=== PATIENT | male | born 1955 | race Caucasian/White ===

== ENCOUNTER 2022-05-23 09:26 | Inpatient (IN) | payer MEDICARE, BC ==
[2022-05-23 10:53] LABS: #Eosinphils 0.1 10x3/uL (0.0-0.5); #Monocytes 1.2 10x3/uL (0.0-1.1); #Neutrophils 8.2 10x3/uL (1.5-8.4); %Basophils 0.3 % (0.0-2.0); %Eosinophils 0.5 % (0.0-6.0); %Lymphocytes 8.7 % (18.0-47.0); %Monocytes 11.5 % (0.0-10.0); %Neutrophils 78.4 % (40.0-75.0); Hemoglobin 9.8 g/dL (13.5-17.5); Mean Corpuscular HGB CONC 32.9 g/dL (32.0-36.0); Mean Corpuscular Hemoglobin 28.6 pg (27.0-33.0); Mean Corpuscular Volume 86.9 fl (81.2-95.1); Mean Platelet Volume 11.1 fl (7.4-10.4); Platelet Count 212 10x3/uL (150-450); RBC Distribution Width 14.6 % (11.5-14.5); Red Blood Cell (RBC) Count 3.43 10x6/uL (4.32-5.72); White Blood Cell (WBC) Count 10.4 10x3/uL (3.5-10.5)
[2022-05-23 11:05] LABS: ALT (SGPT) 10 U/L (8-55); AST (SGOT) 13 U/L (5-34); Albumin 4.1 g/dL (3.4-4.8); Alkaline Phosphatase 73 U/L (40-110); Anion Gap 16 mmol/L (10-20); BUN (Urea Nitrogen) 14 mg/dL (8.4-25.7); Bilirubin, Total 1.1 mg/dL (0.2-1.2); Calc. Creatinine Clearance 0 mL/min (70-130); Calcium 9.5 mg/dL (7.8-10.44); Carbon Dioxide 27 mmol/L (23-31); Chloride 93 mmol/L (98-107); Estimated GFR 87; Globulin 2.9 g/dL (2.4-3.5); Glucose 129 mg/dL (80-115); Potassium 3.6 mmol/L (3.5-5.1); Sodium 132 mmol/L (136-145)
[2022-05-23 11:06] LABS: Acetaminophen Less than 10.0 mcg/mL (10.0-30.0); Alcohol Less than 10 mg/dL (Less than 10); Magnesium 1.6 mg/dL (1.6-2.6); Salicylate Less than 8.0 mg/dL (15.0-30.0)
[2022-05-23 12:38] LABS: Bilirubin Neg (Negative); Blood, Urine Negative (Negative); Clarity Clear (Clear); Glucose, Urine (Dipstick) 50 mg/dL (Negative); Ketone, Urine Negative (Negative); Leukocyte Negative (Negative); Nitrite Negative (Negative); Protein, Urine (Dipstick) Negative (Neg-Trace); Specific Gravity, Urine 1.015 (1.002-1.036); Urobilinogen Normal mg/dL (Less than 2)
[2022-05-23 12:52] LABS: Amphetamine Not Detected (NotDetected); Barbiturates Screen Not Detected (NotDetected); Benzodiazepine Screen Not Detected (NotDetected); Cocaine Metabolite Screen Not Detected (NotDetected); Methadone Not Detected (NotDetected); Methamphetamine Not Detected (NotDetected); Opiate Screen Not Detected (NotDetected); Oxycodone Screen Not Detected (NotDetected); Phencyclidine (PCP) Not Detected (NotDetected); THC/Cannabinoid Screen Not Detected (NotDetected); Tricyclic Screen Not Detected (NotDetected)
[2022-05-23] MEDS ORDERED: Sodium Chloride 0.9% 1,000 ML IV SCH (13:00)
[2022-05-23] MEDS ORDERED: Aspirin 81 mg Enteric Coated Tablet PO SCH (13:15)
[2022-05-23 13:28] VITALS: BMI 20.2
[2022-05-23 13:43] LABS: Lactic Acid 1.7 mmol/L (0.5-2.2)
[2022-05-23] MEDS: Sodium Chloride 0.9% 1,000 ML IV SCH ×2 (14:47→22:28)
[2022-05-23] MEDS: Cefepime 2 GM in Sodium Chloride 0.9% 100 ML IVPB SCH (20:10)
[2022-05-23] MEDS ORDERED: Hydrocortisone 10 mg Tablet PO SCH ×2 (21:00)
[2022-05-23] MEDS ORDERED: Vancomycin 1 GM in Premix Bag 1 BAG IVPB SCH (21:00)
[2022-05-23] MEDS: cycloSPORINE, Modified 25 MG CAP PO SCH (21:23)
[2022-05-23] MEDS: Vancomycin HCl 1 GM in Sodium Chloride 0.9% 250 ML 250 ML IVPB SCH (21:29)
[2022-05-24 04:55] LABS: Ferritin 23.44 ng/mL (22-322); Thyroid Stimulating Hormone 1.1591 uIU/mL (0.35-4.94)
[2022-05-24] MEDS ORDERED: hydrALAZINE 20 MG/ML VIAL SLOW IVP PRN (09:24)
[2022-05-24] MEDS ORDERED: Polyethylene Glycol 3350 17 GM Packet PO PRN (09:28)
[2022-05-24] MEDS ORDERED: Loratadine 10 MG TAB PO PRN (09:31)
[2022-05-24] MEDS: Vancomycin HCl 1 GM in Sodium Chloride 0.9% 250 ML 250 ML IVPB SCH (09:56)
[2022-05-24] MEDS: Cefepime 2 GM in Sodium Chloride 0.9% 100 ML IVPB SCH (09:56)
[2022-05-24] MEDS: Multivitamin W/ Minerals 1 TAB PO SCH (09:57)
[2022-05-24] MEDS: Aspirin 81 mg Enteric Coated Tablet PO SCH (09:57)
[2022-05-24] MEDS: Hydrocortisone 10 mg Tablet PO SCH (09:57)
[2022-05-24] MEDS: cycloSPORINE, Modified 25 MG CAP PO SCH ×2 (10:06→20:43)
[2022-05-24 13:18] LABS: Iron Binding Capacity, Total 313 mcg/dL (261-462); Transferrin, Serum 250 mg/dL (163-344)
[2022-05-24 13:19] LABS: Iron 23 ug/dL (65-175)
[2022-05-24] MEDS ORDERED: Tamsulosin HCl 0.4 MG CAP PO SCH (17:00)
[2022-05-24] MEDS: metFORMIN 500 MG TAB PO SCH (17:34)
[2022-05-24] MEDS: Magnesium Oxide 400 MG TAB PO SCH (20:43)
[2022-05-24] MEDS ORDERED: Mirtazapine 15 MG TAB PO SCH (21:00)
[2022-05-24] MEDS ORDERED: Hydrocortisone 10 mg Tablet PO SCH ×2 (21:00)
[2022-05-24] MEDS ORDERED: Atorvastatin Calcium 20 MG TAB PO SCH (21:00)
[2022-05-25 07:34] LABS: Anion Gap 12 mmol/L (10-20); BUN (Urea Nitrogen) 11 mg/dL (8.4-25.7); Calc. Creatinine Clearance 86 mL/min (70-130); Calcium 9.4 mg/dL (7.8-10.44); Carbon Dioxide 28 mmol/L (23-31); Chloride 104 mmol/L (98-107); Estimated GFR 97; Glucose 122 mg/dL (80-115); Potassium 3.5 mmol/L (3.5-5.1); Sodium 140 mmol/L (136-145)
[2022-05-25 08:04] VITALS: TEMP 97.6
[2022-05-25] MEDS ORDERED: Calcium Carbonate 600 MG TAB PO SCH (09:00)
[2022-05-25] MEDS ORDERED: Alogliptin 25 MG TAB PO SCH (09:00)
[2022-05-25] MEDS: Hydrocortisone 10 mg Tablet PO SCH (09:38)
[2022-05-25] MEDS: Magnesium Oxide 400 MG TAB PO SCH (09:38)
[2022-05-25] MEDS: Aspirin 81 mg Enteric Coated Tablet PO SCH (09:38)
[2022-05-25] MEDS: cycloSPORINE, Modified 25 MG CAP PO SCH (09:39)
[2022-05-25] MEDS: metFORMIN 500 MG TAB PO SCH (09:39)
[2022-05-25] MEDS: Multivitamin W/ Minerals 1 TAB PO SCH (09:39)
[2022-05-25 11:20] VITALS: BP 140/99
== END 2022-05-25 11:07 | disposition home or self-care (01) | DRG 641 ==
LOC: CSHERS 09:47 → CSHTELE 13:09
PROVIDERS: ADMIT Internal Medicine; ATTEND Family Medicine
DX: E86.0 Dehydration (principal); T86.19 Other complication of kidney transplant; Z94.1 Heart transplant status; N17.9 Acute kidney failure, unspecified; Z94.0 Kidney transplant status; E87.1 Hypo-osmolality and hyponatremia; E87.2 Acidosis; E11.9 Type 2 diabetes mellitus without complications; I10 Essential (primary) hypertension; I95.1 Orthostatic hypotension; D64.9 Anemia, unspecified; E78.5 Hyperlipidemia, unspecified; N40.0 Benign prostatic hyperplasia without lower urinary tract symptoms; F32.A Depression, unspecified; Y83.8 Other surgical procedures as the cause of abnormal reaction of the patient, or of later complication, without mention of misadventure at the time of the procedure; Z20.822 Contact with and (suspected) exposure to COVID-19
CPT/HCPCS: 36415; 36416; 70450; 71045; 80048; 80053; 80158; 80306; 80307; 81003; 82565; 82607; 82728; 83540; 83550; 83605; 83735; 84238; 84443; 84466; 85025; 87040; 87086; 93005; 96365; J0692; J3370; J3490; J7050; J7515; U0003; U0005

== ENCOUNTER 2022-07-12 19:25 | Inpatient (IN) | payer MEDICARE, BC ==
[2022-07-12 19:56] LABS: Bilirubin Neg (Negative); Blood, Urine 250 (Negative); Clarity Cloudy (Clear); Glucose, Urine (Dipstick) 50 mg/dL (Negative); Ketone, Urine 50 mg/dL (Negative); Leukocyte 500 (Negative); Nitrite Positive (Negative); Protein, Urine (Dipstick) 100 mg/dl (Neg-Trace); Urobilinogen Normal mg/dL (Less than 2)
[2022-07-12 20:02] LABS: Bacteria/HPF 1+ HPF (None Seen); RBC/HPF Greater than 50 HPF (0-3); Squamous Epithelial 0-3 HPF (0-3); WBC/HPF Greater Than 50 HPF (0-3)
[2022-07-12] MEDS ORDERED: Cefepime 2 GM VIAL ONE (20:09)
[2022-07-12] MEDS ORDERED: Ibuprofen 200 MG TAB ONE (20:13)
[2022-07-12 20:21] LABS: Hemoglobin 7.2 g/dL (13.5-17.5); MDiff Complete? YES; Mean Corpuscular Hemoglobin 28.5 pg (27.0-33.0); Mean Corpuscular Volume 86.2 fl (81.2-95.1); Mean Platelet Volume 10.9 fl (7.4-10.4); Platelet Count 171 10x3/uL (150-450); Platelet Morphology Comment Appears Adequate; RBC Distribution Width 17.6 % (11.5-14.5); Red Blood Cell (RBC) Count 2.53 10x6/uL (4.32-5.72); White Blood Cell (WBC) Count 17.2 10x3/uL (3.5-10.5)
[2022-07-12 20:26] LABS: SARS-CoV-2 NAA Rapid Test Not Detected (NotDetected)
[2022-07-12 20:33] LABS: ALT (SGPT) 28 U/L (8-55); AST (SGOT) 44 U/L (5-34); Albumin 3.1 g/dL (3.4-4.8); Alkaline Phosphatase 101 U/L (40-110); Anion Gap 13 mmol/L (10-20); BUN (Urea Nitrogen) 18 mg/dL (8.4-25.7); Bilirubin, Total 1.4 mg/dL (0.2-1.2); CK (CPK) 412 U/L (30-200); Calc. Creatinine Clearance 0 mL/min (70-130); Calcium 8.1 mg/dL (7.8-10.44); Carbon Dioxide 19 mmol/L (23-31); Chloride 106 mmol/L (98-107); Estimated GFR 97; Globulin 3.4 g/dL (2.4-3.5); Glucose 159 mg/dL (80-115); Lipase 61 U/L (8-78); Potassium 3.1 mmol/L (3.5-5.1); Protein, Total 6.5 g/dL (5.8-8.1); Sodium 135 mmol/L (136-145)
[2022-07-12 21:24] LABS: Band 18 % (5-11); Lymphocytes 6 % (21-51); Monocytes 8 % (0-10); Neutrophil 67 % (42-75)
[2022-07-12] MEDS ORDERED: Communication Order-Pharmacy FS PRN (21:40)
[2022-07-12] MEDS ORDERED: Acetaminophen 650 MG Suppository PR PRN (21:45)
[2022-07-12] MEDS ORDERED: Ondansetron PF 4 MG/2 ML Vial IVP PRN (21:45)
[2022-07-12 22:25] LABS: Magnesium 1.5 mg/dL (1.6-2.6)
[2022-07-12] MEDS ORDERED: VANCOMYCIN 1.25 GM/250 ML BAG 1.25 GM in Premix Bag 1 BAG IVPB SCH (22:45)
[2022-07-12] MEDS ORDERED: NOREPINEPHRINE 8 MG/250 ML-D5W 250 ML IVPB SCH (23:00)
[2022-07-12] MEDS ORDERED: Potassium Chloride 20 MEQ/100 ML PREMIX BAG ONE (23:20)
[2022-07-12] MEDS ORDERED: Hydrocortisone Sod Succ/PF 100 mg/2 ml Vial ONE (23:20)
[2022-07-12] MEDS: Lactated Ringer's 1,000 ML IV SCH (23:37)
[2022-07-12] MEDS: Hydrocortisone Sod Succ/PF 100 mg/2 ml Vial IVP SCH (23:37)
[2022-07-12] MEDS: Potassium Chloride 20 MEQ in Premix Bag 1 BAG IVPB SCH (23:44)
[2022-07-13] MEDS ORDERED: Dextrose 5% in Water 1,000 ML IV PRN (00:06)
[2022-07-13] MEDS ORDERED: Dextrose 50% Abboject 50 ML SYRINGE SLOW IVP PRN (00:06)
[2022-07-13] MEDS ORDERED: HumaLOG 300 UNITS/3 ML VIAL SC PRN (00:06)
[2022-07-13 00:12] LABS: Troponin I 0.029 ng/mL (< 0.028)
[2022-07-13] MEDS ORDERED: Magnesium 2 GM/50 ML BAG (IN WATER) ONE (00:59)
[2022-07-13] MEDS ORDERED: Magnesium 2 GM/50 ML(in water) 2 GM in Premix Bag 1 BAG IVPB SCH (01:00)
[2022-07-13] MEDS ORDERED: Potassium Chloride 20 MEQ/100 ML PREMIX BAG ONE (01:56)
[2022-07-13] MEDS: Potassium Chloride 20 MEQ in Premix Bag 1 BAG IVPB SCH (01:56)
[2022-07-13 04:08] LABS: Hemoglobin 7.9 g/dL (13.5-17.5); Mean Corpuscular HGB CONC 32.6 g/dL (32.0-36.0); Mean Corpuscular Hemoglobin 28.9 pg (27.0-33.0); Mean Corpuscular Volume 88.6 fl (81.2-95.1); Mean Platelet Volume 11.7 fl (7.4-10.4); RBC Distribution Width 18.1 % (11.5-14.5); Red Blood Cell (RBC) Count 2.73 10x6/uL (4.32-5.72); White Blood Cell (WBC) Count 18.4 10x3/uL (3.5-10.5)
[2022-07-13 04:09] LABS: Platelet Count 143 10x3/uL (150-450)
[2022-07-13 04:10] LABS: Anion Gap 16 mmol/L (10-20); BUN (Urea Nitrogen) 14 mg/dL (8.4-25.7); Calc. Creatinine Clearance 0 mL/min (70-130); Calcium 8.5 mg/dL (7.8-10.44); Carbon Dioxide 15 mmol/L (23-31); Chloride 110 mmol/L (98-107); Estimated GFR 99; Glucose 145 mg/dL (80-115); Potassium 3.7 mmol/L (3.5-5.1); Sodium 137 mmol/L (136-145)
[2022-07-13 04:20] LABS: Troponin I 0.028 ng/mL (< 0.028)
[2022-07-13] MEDS ORDERED: Hydrocortisone Sod Succ/PF 100 mg/2 ml Vial ONE ×2 (04:55→10:55)
[2022-07-13] MEDS: Hydrocortisone Sod Succ/PF 100 mg/2 ml Vial IVP SCH ×2 (05:00→11:08)
[2022-07-13 05:13] LABS: MDiff Complete? YES
[2022-07-13] MEDS: Lactated Ringer's 1,000 ML IV SCH ×2 (05:13→13:17)
[2022-07-13 05:16] LABS: Band 30 % (5-11); Lymphocytes 2 % (21-51); Monocytes 6 % (0-10); Neutrophil 62 % (42-75)
[2022-07-13 05:18] LABS: Anisocytosis MODERATE=16-30 cells (100X) (0-5/hpf); Macrocytosis SLIGHT = 6-15 cells (100X) (0-5/hpf); Microcytosis SLIGHT = 6-15 cells (100X) (0-5/hpf); Platelet Morphology Comment Appears Decreased
[2022-07-13 06:23] LABS: Magnesium 2.1 mg/dL (1.6-2.6)
[2022-07-13] MEDS ORDERED: Enoxaparin Sodium 40 MG/0.4 ML SYRINGE ONE (07:40)
[2022-07-13] MEDS ORDERED: Pantoprazole 40 MG VIAL ONE (07:40)
[2022-07-13] MEDS ORDERED: Cefepime 2 GM VIAL ONE (07:40)
[2022-07-13] MEDS: Pantoprazole 40 MG VIAL IVP SCH (08:55)
[2022-07-13] MEDS: Cefepime 2 GM in Sodium Chloride 0.9% 100 ML IVPB SCH ×2 (08:55→20:47)
[2022-07-13 09:58] VITALS: BMI 20.4
[2022-07-13] MEDS: Enoxaparin Sodium 40 MG/0.4 ML SYRINGE SC SCH (11:07)
[2022-07-13] MEDS: Vancomycin HCl 750 MG in Sodium Chloride 0.9% 250 ML 250 ML IVPB SCH (11:08)
[2022-07-13] MEDS: Hydrocortisone 10 mg Tablet PO SCH (20:48)
[2022-07-14] MEDS: Vancomycin HCl 750 MG in Sodium Chloride 0.9% 250 ML 250 ML IVPB SCH (00:56)
[2022-07-14] MEDS: Cefepime 2 GM in Sodium Chloride 0.9% 100 ML IVPB SCH ×3 (02:31→13:27)
[2022-07-14 05:50] LABS: #Basophils 0.1 10x3/uL (0.0-0.2); #Monocytes 0.9 10x3/uL (0.0-1.1); #Neutrophils 16.2 10x3/uL (1.5-8.4); %Basophils 0.3 % (0.0-2.0); %Eosinophils 0.2 % (0.0-6.0); %Lymphocytes 4.7 % (18.0-47.0); %Monocytes 4.7 % (0.0-10.0); %Neutrophils 89.3 % (40.0-75.0); Hemoglobin 7.8 g/dL (13.5-17.5); Mean Corpuscular HGB CONC 32.8 g/dL (32.0-36.0); Mean Corpuscular Hemoglobin 28.5 pg (27.0-33.0); Mean Corpuscular Volume 86.9 fl (81.2-95.1); Mean Platelet Volume 11.5 fl (7.4-10.4); Platelet Count 156 10x3/uL (150-450); RBC Distribution Width 18.1 % (11.5-14.5); Red Blood Cell (RBC) Count 2.74 10x6/uL (4.32-5.72); White Blood Cell (WBC) Count 18.1 10x3/uL (3.5-10.5)
[2022-07-14 06:10] LABS: ALT (SGPT) 32 U/L (8-55); AST (SGOT) 91 U/L (5-34); Albumin 2.9 g/dL (3.4-4.8); Alkaline Phosphatase 103 U/L (40-110); Anion Gap 13 mmol/L (10-20); BUN (Urea Nitrogen) 14 mg/dL (8.4-25.7); Bilirubin, Total 1.4 mg/dL (0.2-1.2); Calc. Creatinine Clearance 89 mL/min (70-130); Calcium 8.7 mg/dL (7.8-10.44); Carbon Dioxide 20 mmol/L (23-31); Chloride 106 mmol/L (98-107); Estimated GFR 100; Globulin 3.6 g/dL (2.4-3.5); Glucose 105 mg/dL (80-115); Potassium 3.3 mmol/L (3.5-5.1); Protein, Total 6.5 g/dL (5.8-8.1); Sodium 136 mmol/L (136-145)
[2022-07-14] MEDS: Lactated Ringer's 1,000 ML IV SCH ×2 (09:55→20:15)
[2022-07-14] MEDS: Hydrocortisone 10 mg Tablet PO SCH ×2 (09:56→20:48)
[2022-07-14] MEDS: Pantoprazole 40 MG VIAL IVP SCH (09:56)
[2022-07-14] MEDS: Enoxaparin Sodium 40 MG/0.4 ML SYRINGE SC SCH (09:56)
[2022-07-14 10:38] LABS: Vancomycin, Trough 12.5 ug/mL
[2022-07-14] MEDS ORDERED: Vancomycin HCl 1 GM in Sodium Chloride 0.9% 250 ML 250 ML IVPB SCH (11:00)
[2022-07-14] MEDS: Vancomycin HCl 1 GM in Sodium Chloride 0.9% 250 ML 250 ML IVPB SCH (15:25)
[2022-07-15] MEDS: Cefepime 2 GM in Sodium Chloride 0.9% 100 ML IVPB SCH ×2 (01:12→14:25)
[2022-07-15] MEDS: Lactated Ringer's 1,000 ML IV SCH ×3 (02:26→20:15)
[2022-07-15] MEDS: Vancomycin HCl 1 GM in Sodium Chloride 0.9% 250 ML 250 ML IVPB SCH (03:29)
[2022-07-15] MEDS ORDERED: Acetaminophen 325 MG TAB PO PRN (03:50)
[2022-07-15 05:25] LABS: #Basophils 0.1 10x3/uL (0.0-0.2); #Eosinphils 0.1 10x3/uL (0.0-0.5); #Monocytes 0.6 10x3/uL (0.0-1.1); #Neutrophils 7.9 10x3/uL (1.5-8.4); %Basophils 0.5 % (0.0-2.0); %Eosinophils 0.9 % (0.0-6.0); %Lymphocytes 7.3 % (18.0-47.0); %Monocytes 6.6 % (0.0-10.0); %Neutrophils 84.2 % (40.0-75.0); Hemoglobin 7.9 g/dL (13.5-17.5); Mean Corpuscular HGB CONC 33.6 g/dL (32.0-36.0); Mean Corpuscular Hemoglobin 28.4 pg (27.0-33.0); Mean Corpuscular Volume 84.5 fl (81.2-95.1); Mean Platelet Volume 10.6 fl (7.4-10.4); Platelet Count 135 10x3/uL (150-450); RBC Distribution Width 17.7 % (11.5-14.5); Red Blood Cell (RBC) Count 2.78 10x6/uL (4.32-5.72); White Blood Cell (WBC) Count 9.9 10x3/uL (3.5-10.5)
[2022-07-15 05:38] LABS: Anion Gap 12 mmol/L (10-20); BUN (Urea Nitrogen) 10 mg/dL (8.4-25.7); Calc. Creatinine Clearance 93 mL/min (70-130); Carbon Dioxide 21 mmol/L (23-31); Chloride 108 mmol/L (98-107); Sodium 138 mmol/L (136-145)
[2022-07-15 05:39] LABS: Calcium 8.5 mg/dL (7.8-10.44); Estimated GFR 101; Glucose 125 mg/dL (80-115)
[2022-07-15 05:42] LABS: Potassium 2.7 mmol/L (3.5-5.1)
[2022-07-15] MEDS ORDERED: Potassium Chloride 20 MEQ TAB PO SCH ×2 (06:00→09:00)
[2022-07-15] MEDS: Enoxaparin Sodium 40 MG/0.4 ML SYRINGE SC SCH (08:59)
[2022-07-15] MEDS: Hydrocortisone 10 mg Tablet PO SCH ×2 (08:59→21:15)
[2022-07-16] MEDS: Cefepime 2 GM in Sodium Chloride 0.9% 100 ML IVPB SCH ×2 (02:05→14:46)
[2022-07-16 08:19] LABS: Anion Gap 11 mmol/L (10-20); BUN (Urea Nitrogen) 7 mg/dL (8.4-25.7); Calc. Creatinine Clearance 101 mL/min (70-130); Calcium 9.1 mg/dL (7.8-10.44); Carbon Dioxide 24 mmol/L (23-31); Chloride 108 mmol/L (98-107); Estimated GFR 104; Glucose 116 mg/dL (80-115); Potassium 3.1 mmol/L (3.5-5.1); Sodium 140 mmol/L (136-145)
[2022-07-16 08:21] LABS: #Basophils 0.1 10x3/uL (0.0-0.2); #Eosinphils 0.2 10x3/uL (0.0-0.5); #Monocytes 0.9 10x3/uL (0.0-1.1); %Basophils 1.1 % (0.0-2.0); %Eosinophils 2.8 % (0.0-6.0); %Lymphocytes 11.3 % (18.0-47.0); %Monocytes 12.8 % (0.0-10.0); %Neutrophils 71.4 % (40.0-75.0); Hemoglobin 8.3 g/dL (13.5-17.5); Mean Corpuscular HGB CONC 33.1 g/dL (32.0-36.0); Mean Corpuscular Volume 84.8 fl (81.2-95.1); Mean Platelet Volume 10.1 fl (7.4-10.4); Platelet Count 126 10x3/uL (150-450); RBC Distribution Width 17.8 % (11.5-14.5); Red Blood Cell (RBC) Count 2.96 10x6/uL (4.32-5.72)
[2022-07-16] MEDS: Lactated Ringer's 1,000 ML IV SCH ×2 (10:10→17:52)
[2022-07-16] MEDS: Hydrocortisone 10 mg Tablet PO SCH (10:10)
[2022-07-16] MEDS: Enoxaparin Sodium 40 MG/0.4 ML SYRINGE SC SCH (10:10)
[2022-07-16 16:23] VITALS: BP 118/80; TEMP 99.9
== END 2022-07-16 18:25 | DRG 698 ==
LOC: CSHERS 19:25 → CSHERHOLD 22:44 → CSHTELE 07-13 18:43
PROVIDERS: ADMIT Family Medicine; ATTEND Family Medicine
DX: T83.511A Infection and inflammatory reaction due to indwelling urethral catheter, initial encounter (principal); A41.51 Sepsis due to Escherichia coli [E. coli]; R65.20 Severe sepsis without septic shock; A41.52 Sepsis due to Pseudomonas; D84.9 Immunodeficiency, unspecified; E87.20 Acidosis, unspecified; Z94.1 Heart transplant status; Z94.0 Kidney transplant status; N39.0 Urinary tract infection, site not specified; E87.6 Hypokalemia; E11.9 Type 2 diabetes mellitus without complications; I95.1 Orthostatic hypotension; N40.1 Benign prostatic hyperplasia with lower urinary tract symptoms; R33.8 Other retention of urine; D63.8 Anemia in other chronic diseases classified elsewhere; K21.9 Gastro-esophageal reflux disease without esophagitis; G20 Parkinson's disease; I10 Essential (primary) hypertension; N40.0 Benign prostatic hyperplasia without lower urinary tract symptoms; F01.50 Vascular dementia, unspecified severity, without behavioral disturbance, psychotic disturbance, mood disturbance, and anxiety; Z20.822 Contact with and (suspected) exposure to COVID-19; Z79.82 Long term (current) use of aspirin; Z79.899 Other long term (current) drug therapy; Y83.8 Other surgical procedures as the cause of abnormal reaction of the patient, or of later complication, without mention of misadventure at the time of the procedure
CPT/HCPCS: 36415; 36416; 70450; 71045; 80048; 80053; 80061; 80195; 80202; 81003; 81015; 82140; 82306; 82550; 83036; 83605; 83690; 83735; 84100; 84443; 84484; 85025; 87040; 87077; 87086; 87149; 87186; 93005; 93010; 94760; 96361; 96365; C9113; J0692; J1650; J1720; J3370; J3475; J3480; J3490; J7050; J7120; U0002

== ENCOUNTER 2022-08-09 01:38 | Inpatient (IN) | payer MEDICARE, BC ==
[2022-08-09 01:49] LABS: Bilirubin Neg (Negative); Blood, Urine 25 (Negative); Clarity Clear (Clear); Glucose, Urine (Dipstick) 100 mg/dL (Negative); Ketone, Urine Negative (Negative); Leukocyte 100 (Negative); Nitrite Negative (Negative); Protein, Urine (Dipstick) 30 mg/dl (Neg-Trace); Urobilinogen Normal mg/dL (Less than 2)
[2022-08-09 01:52] LABS: #Basophils 0.1 10x3/uL (0.0-0.2); #Eosinphils 0.1 10x3/uL (0.0-0.5); #Monocytes 0.6 10x3/uL (0.0-1.1); #Neutrophils 5.6 10x3/uL (1.5-8.4); %Basophils 0.7 % (0.0-2.0); %Lymphocytes 12.7 % (18.0-47.0); %Monocytes 8.6 % (0.0-10.0); %Neutrophils 76.5 % (40.0-75.0); Mean Corpuscular HGB CONC 32.4 g/dL (32.0-36.0); Mean Corpuscular Hemoglobin 28.8 pg (27.0-33.0); Mean Corpuscular Volume 89.1 fl (81.2-95.1); Mean Platelet Volume 12.3 fl (7.4-10.4); Platelet Count 140 10x3/uL (150-450); Red Blood Cell (RBC) Count 3.12 10x6/uL (4.32-5.72); White Blood Cell (WBC) Count 7.3 10x3/uL (3.5-10.5)
[2022-08-09 01:59] LABS: ALT (SGPT) 15 U/L (8-55); AST (SGOT) 15 U/L (5-34); Albumin 3.6 g/dL (3.4-4.8); Alkaline Phosphatase 83 U/L (40-110); Anion Gap 16 mmol/L (10-20); BUN (Urea Nitrogen) 12 mg/dL (8.4-25.7); Bilirubin, Total 1.1 mg/dL (0.2-1.2); Calc. Creatinine Clearance 0 mL/min (70-130); Calcium 8.7 mg/dL (7.8-10.44); Carbon Dioxide 20 mmol/L (23-31); Chloride 104 mmol/L (98-107); Estimated GFR 101; Globulin 3.2 g/dL (2.4-3.5); Glucose 117 mg/dL (80-115); Potassium 3.2 mmol/L (3.5-5.1); Protein, Total 6.8 g/dL (5.8-8.1); Sodium 137 mmol/L (136-145)
[2022-08-09] MEDS ORDERED: cefTRIAXone\\ROCEPHIN 2 GM VIAL ONE (02:26)
[2022-08-09 02:28] LABS: Bacteria/HPF Rare-Few HPF (None Seen); RBC/HPF 0-3 HPF (0-3); Squamous Epithelial None Seen HPF (0-3); Yeast-Budding Rare HPF (None Seen)
[2022-08-09] MEDS ORDERED: Ondansetron PF 4 MG/2 ML Vial IVP PRN (03:47)
[2022-08-09] MEDS ORDERED: Calcium Carbonate 500 MG ChewTAB PO PRN (03:47)
[2022-08-09] MEDS ORDERED: Senokot S 8.6-50 MG TAB PO PRN (03:47)
[2022-08-09] MEDS ORDERED: Dextrose 50% Abboject 50 ML SYRINGE SLOW IVP PRN (03:47)
[2022-08-09] MEDS ORDERED: Guaifenesin DM 100-10/5 ML UDCUP PO PRN (03:47)
[2022-08-09] MEDS ORDERED: Dextrose 5% in Water 1,000 ML IV PRN (03:47)
[2022-08-09] MEDS ORDERED: Lactated Ringer's 1,000 ML IV SCH (04:00)
[2022-08-09 05:19] VITALS: BMI 18.3
[2022-08-09 05:37] LABS: Lactic Acid 2.7 mmol/L (0.5-2.2)
[2022-08-09 06:16] LABS: SARS-CoV-2 NAA Rapid Test Not Detected (NotDetected)
[2022-08-09] MEDS: Lactated Ringer's 500 ML IV SCH ×2 (06:30→12:04)
[2022-08-09] MEDS ORDERED: Potassium Chloride 20 MEQ TAB PO SCH ×2 (06:45→09:00)
[2022-08-09] MEDS ORDERED: Fluconazole In NaCl,Iso-Osm 400 MG in Premix Bag 1 BAG IVPB SCH (08:00)
[2022-08-09] MEDS ORDERED: Hydrocortisone 10 mg Tablet PO SCH ×2 (09:00→21:00)
[2022-08-09] MEDS: Loratadine 10 MG TAB PO PRN (09:30)
[2022-08-09] MEDS: Carbidopa/Levodopa 25-100 mg Tablet PO SCH ×3 (09:30→21:31)
[2022-08-09] MEDS: Aspirin 81 mg Enteric Coated Tablet PO SCH (09:32)
[2022-08-09] MEDS: Cefepime 1 GM in Sodium Chloride 0.9% 100 ML IVPB SCH ×2 (09:32→21:30)
[2022-08-09] MEDS: Alogliptin 6.25 MG TAB PO SCH (09:32)
[2022-08-09] MEDS: Calcium Carbonate 600 MG TAB PO SCH (09:32)
[2022-08-09] MEDS: Multivit, Therapeutic 1 TAB PO SCH (09:33)
[2022-08-09] MEDS ORDERED: Vancomycin HCl 1 GM in Sodium Chloride 0.9% 250 ML 250 ML IVPB SCH (11:00)
[2022-08-09] MEDS ORDERED: Lactated Ringer's 500 ML IV SCH (11:00)
[2022-08-09] MEDS: Acetaminophen 325 MG TAB PO PRN ×2 (12:03→21:30)
[2022-08-09] MEDS: Lactated Ringer's 1,000 ML IV SCH (12:04)
[2022-08-09] MEDS: metroNIDAZOLE 500 MG in Premix Bag 1 BAG IVPB SCH ×2 (14:02→22:27)
[2022-08-09] MEDS: Tamsulosin HCl 0.4 MG CAP PO SCH (15:11)
[2022-08-09] MEDS ORDERED: metroNIDAZOLE 500 MG/100 ML BAG ONE (20:46)
[2022-08-09] MEDS: Enoxaparin Sodium 40 MG/0.4 ML SYRINGE SC SCH (21:30)
[2022-08-09] MEDS: Hydrocortisone 10 mg Tablet PO SCH (21:31)
[2022-08-09] MEDS: Atorvastatin Calcium 40 MG TAB PO SCH (21:31)
[2022-08-10] MEDS: Vancomycin HCl 750 MG in Sodium Chloride 0.9% 250 ML 250 ML IVPB SCH ×2 (01:30→13:11)
[2022-08-10] MEDS: Lactated Ringer's 1,000 ML IV SCH ×3 (04:26→17:08)
[2022-08-10] MEDS: metroNIDAZOLE 500 MG in Premix Bag 1 BAG IVPB SCH ×3 (05:44→22:33)
[2022-08-10 06:21] LABS: #Monocytes 0.5 10x3/uL (0.0-1.1); #Neutrophils 5.9 10x3/uL (1.5-8.4); %Basophils 0.4 % (0.0-2.0); %Eosinophils 0.3 % (0.0-6.0); %Lymphocytes 11.2 % (18.0-47.0); %Monocytes 6.2 % (0.0-10.0); %Neutrophils 81.6 % (40.0-75.0); Mean Corpuscular Hemoglobin 28.6 pg (27.0-33.0); Mean Corpuscular Volume 86.7 fl (81.2-95.1); Mean Platelet Volume 11.4 fl (7.4-10.4); Platelet Count 115 10x3/uL (150-450); RBC Distribution Width 17.1 % (11.5-14.5); Red Blood Cell (RBC) Count 3.15 10x6/uL (4.32-5.72); White Blood Cell (WBC) Count 7.2 10x3/uL (3.5-10.5)
[2022-08-10 07:32] LABS: Anion Gap 13 mmol/L (10-20); BUN (Urea Nitrogen) 10 mg/dL (8.4-25.7); Calc. Creatinine Clearance 93 mL/min (70-130); Calcium 8.8 mg/dL (7.8-10.44); Carbon Dioxide 19 mmol/L (23-31); Chloride 110 mmol/L (98-107); Estimated GFR 102; Glucose 127 mg/dL (80-115); Potassium 3.3 mmol/L (3.5-5.1); Sodium 139 mmol/L (136-145)
[2022-08-10] MEDS ORDERED: Potassium Chloride 20 MEQ TAB PO SCH (09:00)
[2022-08-10] MEDS ORDERED: Fluconazole In NaCl,Iso-Osm 400 MG in Premix Bag 1 BAG IVPB SCH (09:00)
[2022-08-10] MEDS ORDERED: PATIENT'S HOME MEDICATION PO SCH (09:00)
[2022-08-10] MEDS: Aspirin 81 mg Enteric Coated Tablet PO SCH (09:24)
[2022-08-10] MEDS: Loratadine 10 MG TAB PO PRN (09:24)
[2022-08-10] MEDS: Multivit, Therapeutic 1 TAB PO SCH (09:24)
[2022-08-10] MEDS: Cefepime 1 GM in Sodium Chloride 0.9% 100 ML IVPB SCH ×2 (09:24→21:07)
[2022-08-10] MEDS: Alogliptin 6.25 MG TAB PO SCH (09:24)
[2022-08-10] MEDS: SIROLIMUS 1 MG PO SCH (09:29)
[2022-08-10] MEDS: SIROLIMUS 0.5 MG FS SCH (09:29)
[2022-08-10] MEDS: Hydrocortisone 10 mg Tablet PO SCH ×2 (09:32→21:07)
[2022-08-10] MEDS: Carbidopa/Levodopa 25-100 mg Tablet PO SCH ×3 (10:11→21:06)
[2022-08-10] MEDS: Calcium Carbonate 600 MG TAB PO SCH (10:11)
[2022-08-10] MEDS: Tamsulosin HCl 0.4 MG CAP PO SCH (17:08)
[2022-08-10] MEDS: Atorvastatin Calcium 40 MG TAB PO SCH (21:06)
[2022-08-10] MEDS: Enoxaparin Sodium 40 MG/0.4 ML SYRINGE SC SCH (21:06)
[2022-08-11 00:35] LABS: Vancomycin, Trough 12.3 ug/mL
[2022-08-11] MEDS: Vancomycin HCl 750 MG in Sodium Chloride 0.9% 250 ML 250 ML IVPB SCH ×2 (01:51→14:14)
[2022-08-11] MEDS: Lactated Ringer's 1,000 ML IV SCH ×2 (03:05→15:30)
[2022-08-11 06:33] LABS: Hemoglobin 8.6 g/dL (13.5-17.5); Mean Corpuscular HGB CONC 32.6 g/dL (32.0-36.0); Mean Corpuscular Hemoglobin 28.3 pg (27.0-33.0); Mean Corpuscular Volume 86.8 fl (81.2-95.1); Mean Platelet Volume 11.5 fl (7.4-10.4); Platelet Count 110 10x3/uL (150-450); RBC Distribution Width 16.8 % (11.5-14.5); Red Blood Cell (RBC) Count 3.04 10x6/uL (4.32-5.72); White Blood Cell (WBC) Count 5.4 10x3/uL (3.5-10.5)
[2022-08-11 06:34] LABS: #Eosinphils 0.1 10x3/uL (0.0-0.5); #Monocytes 0.5 10x3/uL (0.0-1.1); #Neutrophils 3.9 10x3/uL (1.5-8.4); %Basophils 0.6 % (0.0-2.0); %Eosinophils 2.5 % (0.0-6.0); %Lymphocytes 14.2 % (18.0-47.0); %Monocytes 8.7 % (0.0-10.0); %Neutrophils 73.6 % (40.0-75.0)
[2022-08-11] MEDS: metroNIDAZOLE 500 MG in Premix Bag 1 BAG IVPB SCH ×3 (06:42→21:42)
[2022-08-11 06:49] LABS: Anion Gap 12 mmol/L (10-20); BUN (Urea Nitrogen) 8 mg/dL (8.4-25.7); Calc. Creatinine Clearance 100 mL/min (70-130); Carbon Dioxide 23 mmol/L (23-31); Chloride 109 mmol/L (98-107); Estimated GFR 105; Glucose 114 mg/dL (80-115); Potassium 3.3 mmol/L (3.5-5.1); Sodium 141 mmol/L (136-145)
[2022-08-11] MEDS: Cefepime 1 GM in Sodium Chloride 0.9% 100 ML IVPB SCH ×2 (10:28→20:46)
[2022-08-11] MEDS: SIROLIMUS 1 MG PO SCH (10:28)
[2022-08-11] MEDS: SIROLIMUS 0.5 MG FS SCH (10:29)
[2022-08-11] MEDS: Calcium Carbonate 600 MG TAB PO SCH (10:30)
[2022-08-11] MEDS: Carbidopa/Levodopa 25-100 mg Tablet PO SCH ×3 (10:30→20:45)
[2022-08-11] MEDS: Alogliptin 6.25 MG TAB PO SCH (10:30)
[2022-08-11] MEDS ORDERED: Potassium Bicarbonate/Cit Ac 20 MEQ TAB PO SCH (10:30)
[2022-08-11] MEDS: Aspirin 81 mg Enteric Coated Tablet PO SCH (10:30)
[2022-08-11] MEDS: Multivit, Therapeutic 1 TAB PO SCH (10:30)
[2022-08-11] MEDS: Hydrocortisone 10 mg Tablet PO SCH ×2 (10:38→20:46)
[2022-08-11] MEDS: Tamsulosin HCl 0.4 MG CAP PO SCH (17:58)
[2022-08-11] MEDS: Atorvastatin Calcium 40 MG TAB PO SCH (20:44)
[2022-08-11] MEDS: Enoxaparin Sodium 40 MG/0.4 ML SYRINGE SC SCH (20:46)
[2022-08-12] MEDS: Vancomycin HCl 750 MG in Sodium Chloride 0.9% 250 ML 250 ML IVPB SCH ×2 (00:48→12:42)
[2022-08-12] MEDS: Lactated Ringer's 1,000 ML IV SCH ×2 (00:48→17:03)
[2022-08-12 06:17] LABS: Anion Gap 14 mmol/L (10-20); BUN (Urea Nitrogen) 10 mg/dL (8.4-25.7); Calc. Creatinine Clearance 100 mL/min (70-130); Calcium 8.9 mg/dL (7.8-10.44); Carbon Dioxide 24 mmol/L (23-31); Chloride 105 mmol/L (98-107); Estimated GFR 105; Glucose 158 mg/dL (80-115); Potassium 3.2 mmol/L (3.5-5.1); Sodium 140 mmol/L (136-145)
[2022-08-12] MEDS: metroNIDAZOLE 500 MG in Premix Bag 1 BAG IVPB SCH (06:19)
[2022-08-12 06:38] LABS: #Monocytes 0.3 10x3/uL (0.0-1.1); #Neutrophils 3.5 10x3/uL (1.5-8.4); %Basophils 0.6 % (0.0-2.0); %Eosinophils 0.6 % (0.0-6.0); %Lymphocytes 16.8 % (18.0-47.0); %Monocytes 7.1 % (0.0-10.0); %Neutrophils 74.7 % (40.0-75.0); Mean Corpuscular HGB CONC 32.3 g/dL (32.0-36.0); Mean Corpuscular Volume 86.6 fl (81.2-95.1); Mean Platelet Volume 11.1 fl (7.4-10.4); Platelet Count 124 10x3/uL (150-450); RBC Distribution Width 16.5 % (11.5-14.5); Red Blood Cell (RBC) Count 3.22 10x6/uL (4.32-5.72); White Blood Cell (WBC) Count 4.6 10x3/uL (3.5-10.5)
[2022-08-12] MEDS: Cefepime 1 GM in Sodium Chloride 0.9% 100 ML IVPB SCH ×2 (08:12→20:30)
[2022-08-12] MEDS: Aspirin 81 mg Enteric Coated Tablet PO SCH (08:13)
[2022-08-12] MEDS: Alogliptin 6.25 MG TAB PO SCH (08:13)
[2022-08-12] MEDS: Multivit, Therapeutic 1 TAB PO SCH (08:13)
[2022-08-12] MEDS: Calcium Carbonate 600 MG TAB PO SCH (08:19)
[2022-08-12] MEDS: Carbidopa/Levodopa 25-100 mg Tablet PO SCH ×3 (08:19→20:29)
[2022-08-12] MEDS: Hydrocortisone 10 mg Tablet PO SCH ×2 (09:06→20:30)
[2022-08-12] MEDS: SIROLIMUS 1 MG PO SCH (09:08)
[2022-08-12] MEDS: SIROLIMUS 0.5 MG FS SCH (09:08)
[2022-08-12] MEDS: HumaLOG 300 UNITS/3 ML VIAL SC PRN ×3 (12:43→20:40)
[2022-08-12] MEDS ORDERED: Potassium Chloride 20 MEQ TAB PO SCH (13:00)
[2022-08-12] MEDS: Tamsulosin HCl 0.4 MG CAP PO SCH (17:04)
[2022-08-12] MEDS: Atorvastatin Calcium 40 MG TAB PO SCH (20:29)
[2022-08-12] MEDS: Enoxaparin Sodium 40 MG/0.4 ML SYRINGE SC SCH (20:29)
[2022-08-13 05:38] LABS: ALT (SGPT) Less than 6 U/L (8-55); AST (SGOT) 27 U/L (5-34); Albumin 3.3 g/dL (3.4-4.8); Alkaline Phosphatase 73 U/L (40-110); Anion Gap 15 mmol/L (10-20); BUN (Urea Nitrogen) 9 mg/dL (8.4-25.7); Bilirubin, Total 1.3 mg/dL (0.2-1.2); Calc. Creatinine Clearance 84 mL/min (70-130); Calcium 8.9 mg/dL (7.8-10.44); Carbon Dioxide 21 mmol/L (23-31); Chloride 108 mmol/L (98-107); Estimated GFR 99; Globulin 3.1 g/dL (2.4-3.5); Glucose 219 mg/dL (80-115); Magnesium 1.4 mg/dL (1.6-2.6); Potassium 3.3 mmol/L (3.5-5.1); Protein, Total 6.4 g/dL (5.8-8.1); Sodium 141 mmol/L (136-145)
[2022-08-13 05:42] LABS: #Eosinphils 0.1 10x3/uL (0.0-0.5); #Monocytes 0.3 10x3/uL (0.0-1.1); #Neutrophils 2.2 10x3/uL (1.5-8.4); %Basophils 0.8 % (0.0-2.0); %Eosinophils 2.3 % (0.0-6.0); %Lymphocytes 25.3 % (18.0-47.0); %Monocytes 9.3 % (0.0-10.0); %Neutrophils 61.5 % (40.0-75.0); Hemoglobin 8.7 g/dL (13.5-17.5); Mean Corpuscular HGB CONC 32.8 g/dL (32.0-36.0); Mean Corpuscular Hemoglobin 28.2 pg (27.0-33.0); Mean Platelet Volume 10.8 fl (7.4-10.4); Platelet Count 84 10x3/uL (150-450); RBC Distribution Width 16.7 % (11.5-14.5); Red Blood Cell (RBC) Count 3.08 10x6/uL (4.32-5.72); White Blood Cell (WBC) Count 3.6 10x3/uL (3.5-10.5)
[2022-08-13] MEDS: HumaLOG 300 UNITS/3 ML VIAL SC PRN ×2 (06:07→16:17)
[2022-08-13 07:08] LABS: Platelet Morphology Comment Appears Decreased
[2022-08-13 07:09] LABS: Anisocytosis SLIGHT = 6-15 cells (100X) (0-5/hpf)
[2022-08-13] MEDS: Cefepime 1 GM in Sodium Chloride 0.9% 100 ML IVPB SCH ×2 (09:03→21:24)
[2022-08-13] MEDS: Alogliptin 6.25 MG TAB PO SCH (09:08)
[2022-08-13] MEDS: Multivit, Therapeutic 1 TAB PO SCH (09:08)
[2022-08-13] MEDS: Hydrocortisone 10 mg Tablet PO SCH ×2 (09:08→21:22)
[2022-08-13] MEDS: Carbidopa/Levodopa 25-100 mg Tablet PO SCH ×3 (09:09→21:23)
[2022-08-13] MEDS: Calcium Carbonate 600 MG TAB PO SCH (09:09)
[2022-08-13] MEDS: SIROLIMUS 1 MG PO SCH (09:10)
[2022-08-13] MEDS: Aspirin 81 mg Enteric Coated Tablet PO SCH (09:10)
[2022-08-13] MEDS: SIROLIMUS 0.5 MG FS SCH (09:11)
[2022-08-13] MEDS: Magnesium 2 GM/50 ML(in water) 2 GM in Premix Bag 1 BAG IVPB SCH ×2 (09:22→12:00)
[2022-08-13] MEDS ORDERED: Potassium Chloride 20 MEQ TAB PO SCH (10:00)
[2022-08-13] MEDS: Tamsulosin HCl 0.4 MG CAP PO SCH (16:16)
[2022-08-13] MEDS: Enoxaparin Sodium 40 MG/0.4 ML SYRINGE SC SCH (21:23)
[2022-08-13] MEDS: Atorvastatin Calcium 40 MG TAB PO SCH (21:23)
[2022-08-14 07:18] LABS: Anion Gap 13 mmol/L (10-20); BUN (Urea Nitrogen) 9 mg/dL (8.4-25.7); Calc. Creatinine Clearance 94 mL/min (70-130); Calcium 8.8 mg/dL (7.8-10.44); Carbon Dioxide 23 mmol/L (23-31); Chloride 107 mmol/L (98-107); Estimated GFR 103; Glucose 201 mg/dL (80-115); Magnesium 2.1 mg/dL (1.6-2.6); Potassium 3.4 mmol/L (3.5-5.1); Sodium 140 mmol/L (136-145)
[2022-08-14 07:22] LABS: Hemoglobin 8.9 g/dL (13.5-17.5); Mean Corpuscular HGB CONC 31.9 g/dL (32.0-36.0); Mean Corpuscular Hemoglobin 28.2 pg (27.0-33.0); Mean Corpuscular Volume 88.3 fl (81.2-95.1); Mean Platelet Volume 11.7 fl (7.4-10.4); Platelet Count 125 10x3/uL (150-450); RBC Distribution Width 16.6 % (11.5-14.5); Red Blood Cell (RBC) Count 3.16 10x6/uL (4.32-5.72)
[2022-08-14 07:39] LABS: MDiff Complete? YES
[2022-08-14 07:43] LABS: Band 1 % (5-11); Eosinophils 2 % (0-10); Lymphocytes 32 % (21-51); Monocytes 10 % (0-10); Neutrophil 55 % (42-75)
[2022-08-14 07:44] LABS: Anisocytosis SLIGHT = 6-15 cells (100X) (0-5/hpf)
[2022-08-14 07:47] LABS: Platelet Morphology Comment Appears Decreased
[2022-08-14 07:48] LABS: Ovalocytes SLIGHT = 2-5 cells (100X) (0-1/hpf)
[2022-08-14] MEDS ORDERED: Potassium Chloride 20 MEQ TAB PO SCH (10:30)
[2022-08-14] MEDS: Alogliptin 6.25 MG TAB PO SCH (11:26)
[2022-08-14] MEDS: Aspirin 81 mg Enteric Coated Tablet PO SCH (11:26)
[2022-08-14] MEDS: SIROLIMUS 1 MG PO SCH (11:26)
[2022-08-14] MEDS: Hydrocortisone 10 mg Tablet PO SCH ×2 (11:26→21:43)
[2022-08-14] MEDS: Multivit, Therapeutic 1 TAB PO SCH (11:26)
[2022-08-14] MEDS: SIROLIMUS 0.5 MG FS SCH (11:26)
[2022-08-14] MEDS: Calcium Carbonate 600 MG TAB PO SCH (11:26)
[2022-08-14] MEDS: Cefepime 1 GM in Sodium Chloride 0.9% 100 ML IVPB SCH ×2 (11:26→21:42)
[2022-08-14] MEDS: Carbidopa/Levodopa 25-100 mg Tablet PO SCH ×3 (11:26→21:42)
[2022-08-14] MEDS: Tamsulosin HCl 0.4 MG CAP PO SCH (16:45)
[2022-08-14] MEDS: Enoxaparin Sodium 40 MG/0.4 ML SYRINGE SC SCH (21:42)
[2022-08-14] MEDS: Atorvastatin Calcium 40 MG TAB PO SCH (22:25)
[2022-08-15 04:19] LABS: Anion Gap 13 mmol/L (10-20); BUN (Urea Nitrogen) 10 mg/dL (8.4-25.7); Calc. Creatinine Clearance 97 mL/min (70-130); Carbon Dioxide 22 mmol/L (23-31); Chloride 107 mmol/L (98-107); Estimated GFR 104; Glucose 246 mg/dL (80-115); Potassium 3.3 mmol/L (3.5-5.1); Sodium 139 mmol/L (136-145)
[2022-08-15 04:36] LABS: #Eosinphils 0.1 10x3/uL (0.0-0.5); #Monocytes 0.4 10x3/uL (0.0-1.1); #Neutrophils 2.2 10x3/uL (1.5-8.4); %Basophils 1.1 % (0.0-2.0); %Eosinophils 1.4 % (0.0-6.0); %Lymphocytes 25.4 % (18.0-47.0); %Monocytes 11.4 % (0.0-10.0); %Neutrophils 60.2 % (40.0-75.0); Hemoglobin 8.8 g/dL (13.5-17.5); Mean Corpuscular HGB CONC 31.8 g/dL (32.0-36.0); Mean Corpuscular Hemoglobin 27.9 pg (27.0-33.0); Mean Corpuscular Volume 87.9 fl (81.2-95.1); Mean Platelet Volume 10.8 fl (7.4-10.4); Platelet Count 141 10x3/uL (150-450); RBC Distribution Width 16.6 % (11.5-14.5); Red Blood Cell (RBC) Count 3.15 10x6/uL (4.32-5.72); White Blood Cell (WBC) Count 3.7 10x3/uL (3.5-10.5)
[2022-08-15] MEDS: Carbidopa/Levodopa 25-100 mg Tablet PO SCH ×2 (08:57→14:46)
[2022-08-15] MEDS: SIROLIMUS 1 MG PO SCH (08:57)
[2022-08-15] MEDS: Multivit, Therapeutic 1 TAB PO SCH (08:57)
[2022-08-15] MEDS: Aspirin 81 mg Enteric Coated Tablet PO SCH (08:57)
[2022-08-15] MEDS: Calcium Carbonate 600 MG TAB PO SCH (08:57)
[2022-08-15] MEDS: Cefepime 1 GM in Sodium Chloride 0.9% 100 ML IVPB SCH (08:58)
[2022-08-15] MEDS: Hydrocortisone 10 mg Tablet PO SCH (08:59)
[2022-08-15] MEDS: Alogliptin 6.25 MG TAB PO SCH (08:59)
[2022-08-15] MEDS: SIROLIMUS 0.5 MG FS SCH (09:00)
[2022-08-15 12:11] VITALS: BP 140/95; TEMP 97.8
[2022-08-15] MEDS ORDERED: Cefepime 1 GM in Sodium Chloride 0.9% 100 ML IVPB SCH (15:00)
== END 2022-08-15 16:21 | DRG 871 ==
LOC: CSHERS 01:38 → CSHTELE 03:47
PROVIDERS: ADMIT Student in an Organized Health Care Education/Training Program; ATTEND Internal Medicine
DX: A41.9 Sepsis, unspecified organism (principal); E43 Unspecified severe protein-calorie malnutrition; N39.0 Urinary tract infection, site not specified; E87.20 Acidosis, unspecified; Z94.1 Heart transplant status; Z94.0 Kidney transplant status; Z68.1 Body mass index [BMI] 19.9 or less, adult; Z20.822 Contact with and (suspected) exposure to COVID-19; R65.20 Severe sepsis without septic shock; E86.0 Dehydration; E87.6 Hypokalemia; E11.9 Type 2 diabetes mellitus without complications; E78.5 Hyperlipidemia, unspecified; K21.9 Gastro-esophageal reflux disease without esophagitis; R13.12 Dysphagia, oropharyngeal phase; R33.8 Other retention of urine; N40.1 Benign prostatic hyperplasia with lower urinary tract symptoms; D63.8 Anemia in other chronic diseases classified elsewhere; D69.6 Thrombocytopenia, unspecified; F32.A Depression, unspecified; I50.9 Heart failure, unspecified; G20 Parkinson's disease; F02.80 Dementia in other diseases classified elsewhere, unspecified severity, without behavioral disturbance, psychotic disturbance, mood disturbance, and anxiety; Z79.899 Other long term (current) drug therapy; Z79.82 Long term (current) use of aspirin; Z83.3 Family history of diabetes mellitus
CPT/HCPCS: 36415; 36416; 51701; 71045; 74230; 76770; 80048; 80053; 80202; 81003; 81015; 83605; 83735; 85025; 87040; 87070; 87077; 87086; 87186; 87205; 89220; 93005; 96361; 96365; J0692; J0696; J1450; J1650; J1815; J3370; J3475; J3490; J7050; J7120

== ENCOUNTER 2022-09-26 18:42 | Inpatient (IN) | payer MEDICARE, BC ==
[2022-09-26] MEDS ORDERED: Vancomycin 1 GM VIAL ONE (19:24)
[2022-09-26] MEDS ORDERED: Cefepime 2 GM VIAL ONE (19:25)
[2022-09-26 19:57] LABS: #Eosinphils 0.1 10x3/uL (0.0-0.5); #Neutrophils 8.8 10x3/uL (1.5-8.4); %Basophils 0.4 % (0.0-2.0); %Eosinophils 0.5 % (0.0-6.0); %Monocytes 9.3 % (0.0-10.0); %Neutrophils 79.2 % (40.0-75.0); Hemoglobin 9.7 g/dL (13.5-17.5); Mean Corpuscular HGB CONC 31.5 g/dL (32.0-36.0); Mean Corpuscular Hemoglobin 26.9 pg (27.0-33.0); Mean Corpuscular Volume 85.3 fl (81.2-95.1); Mean Platelet Volume 11.2 fl (7.4-10.4); Platelet Count 194 10x3/uL (150-450); RBC Distribution Width 17.4 % (11.5-14.5); Red Blood Cell (RBC) Count 3.61 10x6/uL (4.32-5.72); White Blood Cell (WBC) Count 11.1 10x3/uL (3.5-10.5)
[2022-09-26 20:04] LABS: SARS-CoV-2 NAA Rapid Test Not Detected (NotDetected)
[2022-09-26 20:08] LABS: Acetaminophen Less than 10.0 mcg/mL (10.0-30.0); Alcohol Less than 10 mg/dL (Less than 10); Salicylate Less than 8.0 mg/dL (15.0-30.0)
[2022-09-26 20:09] LABS: ALT (SGPT) 21 U/L (8-55); AST (SGOT) 14 U/L (5-34); Albumin 3.6 g/dL (3.4-4.8); Alkaline Phosphatase 95 U/L (40-110); Anion Gap 13 mmol/L (10-20); BUN (Urea Nitrogen) 16 mg/dL (8.4-25.7); Bilirubin, Total 0.9 mg/dL (0.2-1.2); Calc. Creatinine Clearance 0 mL/min (70-130); Calcium 8.5 mg/dL (7.8-10.44); Carbon Dioxide 20 mmol/L (23-31); Chloride 107 mmol/L (98-107); Estimated GFR 97; Globulin 3.3 g/dL (2.4-3.5); Glucose 153 mg/dL (80-115); Lipase 44 U/L (8-78); Potassium 3.2 mmol/L (3.5-5.1); Protein, Total 6.9 g/dL (5.8-8.1); Sodium 137 mmol/L (136-145)
[2022-09-26 20:14] LABS: Actual Bicarbonate (HCO3v) 21 mEq/L (22-28); Base Excess -3.6 mEq/L (-2.0 to +3.0); Calcium, Ionized (venous) 1.08 mmol/L (1.16-1.32); Chloride (VBG) 104 mmol/L (98-106); Critical Notified By: CP.PH; Hemoglobin (Hb) 10.9 g/dL (12.6-17.4); Potassium (VBG) 3.45 mmol/L (3.70-5.30); Puncture Site Other Site; Sodium 136.6 mmol/L (133-146); pH (venous) 7.39 (7.32-7.43)
[2022-09-26 21:09] LABS: Amphetamine Not Detected (NotDetected); Barbiturates Screen Not Detected (NotDetected); Benzodiazepine Screen Not Detected (NotDetected); Cocaine Metabolite Screen Not Detected (NotDetected); Methadone Not Detected (NotDetected); Methamphetamine Not Detected (NotDetected); Opiate Screen Not Detected (NotDetected); Oxycodone Screen Not Detected (NotDetected); Phencyclidine (PCP) Not Detected (NotDetected); THC/Cannabinoid Screen Not Detected (NotDetected); Tricyclic Screen Not Detected (NotDetected)
[2022-09-26 21:11] LABS: Bilirubin Neg (Negative); Blood, Urine 250 (Negative); Clarity Slightly Cloudy (Clear); Glucose, Urine (Dipstick) Normal (Negative); Ketone, Urine Negative (Negative); Leukocyte 25 (Negative); Nitrite Negative (Negative); Protein, Urine (Dipstick) 30 mg/dl (Neg-Trace); Specific Gravity, Urine 1.005 (1.005-1.030); Urobilinogen Normal mg/dL (Less than 2)
[2022-09-26 21:23] LABS: Bacteria/HPF None Seen HPF (None Seen); Mucous/LPF None Seen LPF (<2+); RBC/HPF Greater than 50 HPF (0-3); Squamous Epithelial 0-3 HPF (0-3)
[2022-09-26] MEDS ORDERED: Polyethylene Glycol 3350 17 GM Packet PO PRN (23:32)
[2022-09-26] MEDS ORDERED: Loratadine 10 MG TAB PO PRN (23:32)
[2022-09-26] MEDS ORDERED: Acetaminophen 325 MG TAB PO PRN (23:37)
[2022-09-26] MEDS ORDERED: Senokot S 8.6-50 MG TAB PO PRN (23:37)
[2022-09-26] MEDS ORDERED: Lactated Ringer's 1,000 ML IV SCH (23:45)
[2022-09-26] MEDS ORDERED: Electrolyte Replacement Protocol IVPB SCH (23:52)
[2022-09-27 00:56] VITALS: BMI 18.0
[2022-09-27 06:34] LABS: #Eosinphils 0.1 10x3/uL (0.0-0.5); #Monocytes 0.8 10x3/uL (0.0-1.1); #Neutrophils 5.8 10x3/uL (1.5-8.4); %Basophils 0.5 % (0.0-2.0); %Eosinophils 0.8 % (0.0-6.0); %Lymphocytes 14.1 % (18.0-47.0); %Monocytes 10.5 % (0.0-10.0); %Neutrophils 73.7 % (40.0-75.0); Mean Corpuscular HGB CONC 31.8 g/dL (32.0-36.0); Mean Corpuscular Hemoglobin 27.2 pg (27.0-33.0); Mean Corpuscular Volume 85.5 fl (81.2-95.1); Mean Platelet Volume 11.3 fl (7.4-10.4); Platelet Count 189 10x3/uL (150-450); RBC Distribution Width 17.4 % (11.5-14.5); Red Blood Cell (RBC) Count 3.31 10x6/uL (4.32-5.72); White Blood Cell (WBC) Count 7.8 10x3/uL (3.5-10.5)
[2022-09-27 06:44] LABS: Anion Gap 12 mmol/L (10-20); BUN (Urea Nitrogen) 13 mg/dL (8.4-25.7); Calc. Creatinine Clearance 82 mL/min (70-130); Calcium 8.7 mg/dL (7.8-10.44); Carbon Dioxide 22 mmol/L (23-31); Chloride 111 mmol/L (98-107); Estimated GFR 99; Glucose 118 mg/dL (80-115); Potassium 3.4 mmol/L (3.5-5.1); Sodium 142 mmol/L (136-145)
[2022-09-27] MEDS ORDERED: Potassium Chloride 20 MEQ TAB PO SCH (08:00)
[2022-09-27] MEDS ORDERED: (Sirolimus [Rapamune] 0.5 MG Tablet) PO SCH (09:00)
[2022-09-27] MEDS: Enoxaparin Sodium 40 MG/0.4 ML SYRINGE SC SCH (09:56)
[2022-09-27] MEDS: Magnesium Oxide 400 MG TAB PO SCH ×2 (09:57→21:27)
[2022-09-27] MEDS: Alogliptin 25 MG TAB PO SCH (09:57)
[2022-09-27] MEDS: metFORMIN 500 MG TAB PO SCH ×2 (09:57→18:17)
[2022-09-27] MEDS: Hydrocortisone 10 mg Tablet PO SCH ×2 (09:57→21:28)
[2022-09-27] MEDS: Multivit, Therapeutic 1 TAB PO SCH (09:58)
[2022-09-27] MEDS: Aspirin 81 mg Enteric Coated Tablet PO SCH (09:58)
[2022-09-27] MEDS: Carbidopa/Levodopa 25-100 mg Tablet PO SCH ×3 (10:01→21:27)
[2022-09-27] MEDS: Tamsulosin HCl 0.4 MG CAP PO SCH (18:17)
[2022-09-27] MEDS: Calcium Carbonate 600 MG TAB PO SCH (18:18)
[2022-09-27] MEDS: Atorvastatin Calcium 40 MG TAB PO SCH (21:27)
[2022-09-28 05:09] LABS: Anion Gap 12 mmol/L (10-20); BUN (Urea Nitrogen) 11 mg/dL (8.4-25.7); Calc. Creatinine Clearance 97 mL/min (70-130); Calcium 9.1 mg/dL (7.8-10.44); Carbon Dioxide 23 mmol/L (23-31); Chloride 108 mmol/L (98-107); Estimated GFR 104; Glucose 126 mg/dL (80-115); Magnesium 1.7 mg/dL (1.6-2.6); Phosphorus 2.5 mg/dL (2.3-4.7); Potassium 3.5 mmol/L (3.5-5.1); Sodium 139 mmol/L (136-145)
[2022-09-28] MEDS ORDERED: Fluticasone Propionate Nasal Spray 16 gm Bottle NASAL PRN (07:59)
[2022-09-28] MEDS ORDERED: Magnesium 2 GM/50 ML(in water) 2 GM in Premix Bag 1 BAG IVPB SCH (08:00)
[2022-09-28] MEDS ORDERED: Potassium Chloride 20 MEQ TAB PO SCH (08:00)
[2022-09-28] MEDS ORDERED: Acetaminophen 325 MG TAB PO PRN (08:02)
[2022-09-28] MEDS: Magnesium Oxide 400 MG TAB PO SCH ×2 (09:40→20:29)
[2022-09-28] MEDS: Alogliptin 25 MG TAB PO SCH (09:41)
[2022-09-28] MEDS: metFORMIN 500 MG TAB PO SCH ×2 (09:41→16:35)
[2022-09-28] MEDS: Aspirin 81 mg Enteric Coated Tablet PO SCH (09:41)
[2022-09-28] MEDS: Carbidopa/Levodopa 25-100 mg Tablet PO SCH ×3 (09:41→20:30)
[2022-09-28] MEDS: Hydrocortisone 10 mg Tablet PO SCH ×2 (09:41→20:30)
[2022-09-28] MEDS: Multivit, Therapeutic 1 TAB PO SCH (09:41)
[2022-09-28] MEDS: Enoxaparin Sodium 40 MG/0.4 ML SYRINGE SC SCH (09:41)
[2022-09-28] MEDS: SIROLIMUS 0.5 MG PO SCH (09:42)
[2022-09-28] MEDS: SIROLIMUS 1 MG PO SCH (09:42)
[2022-09-28] MEDS: Calcium Carbonate 600 MG TAB PO SCH (10:26)
[2022-09-28] MEDS: Tamsulosin HCl 0.4 MG CAP PO SCH (16:35)
[2022-09-28] MEDS: Atorvastatin Calcium 40 MG TAB PO SCH (20:29)
[2022-09-28] MEDS ORDERED: Hydrocortisone 10 mg Tablet PO SCH (21:00)
[2022-09-29] MEDS: Enoxaparin Sodium 40 MG/0.4 ML SYRINGE SC SCH (09:39)
[2022-09-29] MEDS: Hydrocortisone 10 mg Tablet PO SCH (09:39)
[2022-09-29] MEDS: Magnesium Oxide 400 MG TAB PO SCH (09:40)
[2022-09-29] MEDS: Alogliptin 25 MG TAB PO SCH (09:40)
[2022-09-29] MEDS: metFORMIN 500 MG TAB PO SCH ×2 (09:40→16:00)
[2022-09-29] MEDS: Aspirin 81 mg Enteric Coated Tablet PO SCH (09:40)
[2022-09-29] MEDS: Multivit, Therapeutic 1 TAB PO SCH (09:40)
[2022-09-29] MEDS: SIROLIMUS 0.5 MG PO SCH (09:41)
[2022-09-29] MEDS: Calcium Carbonate 600 MG TAB PO SCH (09:41)
[2022-09-29] MEDS: Carbidopa/Levodopa 25-100 mg Tablet PO SCH ×2 (09:41→15:53)
[2022-09-29] MEDS: SIROLIMUS 1 MG PO SCH (09:42)
[2022-09-29] MEDS: Tamsulosin HCl 0.4 MG CAP PO SCH (16:00)
[2022-09-29 17:09] VITALS: BP 113/70; TEMP 97.8
[2022-10-02 16:09] LABS: CMV DNA-PCR Test Negative (Negative)
== END 2022-09-29 19:01 | disposition home or self-care (01) | DRG 947 ==
LOC: CSHERS 18:42 → CSHTELE 22:35
PROVIDERS: ADMIT Student in an Organized Health Care Education/Training Program; ATTEND Internal Medicine
DX: R41.82 Altered mental status, unspecified (principal); E43 Unspecified severe protein-calorie malnutrition; Z94.1 Heart transplant status; Z94.0 Kidney transplant status; I42.8 Other cardiomyopathies; Z68.1 Body mass index [BMI] 19.9 or less, adult; Z20.822 Contact with and (suspected) exposure to COVID-19; E80.4 Gilbert syndrome; G20 Parkinson's disease; F02.80 Dementia in other diseases classified elsewhere, unspecified severity, without behavioral disturbance, psychotic disturbance, mood disturbance, and anxiety; E87.6 Hypokalemia; N40.1 Benign prostatic hyperplasia with lower urinary tract symptoms; R33.8 Other retention of urine; E11.9 Type 2 diabetes mellitus without complications; N31.9 Neuromuscular dysfunction of bladder, unspecified; K21.9 Gastro-esophageal reflux disease without esophagitis; H91.93 Unspecified hearing loss, bilateral; F32.A Depression, unspecified; Z79.82 Long term (current) use of aspirin; Z79.899 Other long term (current) drug therapy; Z79.84 Long term (current) use of oral hypoglycemic drugs; Z86.73 Personal history of transient ischemic attack (TIA), and cerebral infarction without residual deficits
CPT/HCPCS: 36415; 36416; 70450; 71045; 71250; 80048; 80053; 80306; 80307; 81003; 81015; 82805; 83605; 83690; 83735; 84100; 84484; 85025; 87040; 87086; 87449; 87497; 87633; 87804; 87807; 87899; 93005; 96365; 96366; 96368; J0692; J1650; J3370; J3475; J7120; U0002

== ENCOUNTER 2022-11-11 12:46 | Inpatient (IN) | payer MEDICARE, BC ==
[2022-11-11 13:45] LABS: #Eosinphils 0.1 10x3/uL (0.0-0.5); #Monocytes 0.9 10x3/uL (0.0-1.1); #Neutrophils 10.5 10x3/uL (1.5-8.4); %Basophils 0.2 % (0.0-2.0); %Eosinophils 0.5 % (0.0-6.0); %Lymphocytes 9.8 % (18.0-47.0); %Monocytes 7.1 % (0.0-10.0); %Neutrophils 81.9 % (40.0-75.0); Hemoglobin 8.8 g/dL (13.5-17.5); Mean Corpuscular HGB CONC 30.8 g/dL (32.0-36.0); Mean Corpuscular Hemoglobin 25.7 pg (27.0-33.0); Mean Corpuscular Volume 83.6 fl (81.2-95.1); Mean Platelet Volume 11.9 fl (7.4-10.4); Platelet Count 184 10x3/uL (150-450); RBC Distribution Width 19.9 % (11.5-14.5); Red Blood Cell (RBC) Count 3.42 10x6/uL (4.32-5.72); White Blood Cell (WBC) Count 12.8 10x3/uL (3.5-10.5)
[2022-11-11 14:03] LABS: ALT (SGPT) 17 U/L (8-55); AST (SGOT) 22 U/L (5-34); Albumin 3.6 g/dL (3.4-4.8); Alkaline Phosphatase 88 U/L (40-110); Anion Gap 14 mmol/L (10-20); BUN (Urea Nitrogen) 18 mg/dL (8.4-25.7); Bilirubin, Total 0.7 mg/dL (0.2-1.2); Calc. Creatinine Clearance 0 mL/min (70-130); Calcium 8.4 mg/dL (7.8-10.44); Carbon Dioxide 22 mmol/L (23-31); Chloride 106 mmol/L (98-107); Estimated GFR 97; Glucose 154 mg/dL (80-115); Potassium 3.8 mmol/L (3.5-5.1); Protein, Total 6.6 g/dL (5.8-8.1); Sodium 138 mmol/L (136-145)
[2022-11-11] MEDS ORDERED: cefTRIAXone\\ROCEPHIN 2 GM VIAL ONE (14:10)
[2022-11-11] MEDS ORDERED: Vancomycin 1 GM VIAL ONE (15:11)
[2022-11-11 15:34] LABS: Bilirubin Neg (Negative); Blood, Urine 10 (Negative); Clarity Slightly Cloudy (Clear); Glucose, Urine (Dipstick) Normal (Negative); Ketone, Urine Negative (Negative); Leukocyte 500 (Negative); Nitrite Negative (Negative); Protein, Urine (Dipstick) 30 mg/dl (Neg-Trace); Urobilinogen Normal mg/dL (Less than 2)
[2022-11-11 15:50] LABS: WBC/HPF 21-50 HPF (0-3)
[2022-11-11 15:51] LABS: Bacteria/HPF 2+ HPF (None Seen); RBC/HPF 0-3 HPF (0-3); Squamous Epithelial 0-3 HPF (0-3)
[2022-11-11 16:03] LABS: SARS-CoV-2 NAA Rapid Test Not Detected (NotDetected)
[2022-11-11 17:05] LABS: Lactic Acid 1.6 mmol/L (0.5-2.2)
[2022-11-11] MEDS ORDERED: HumaLOG 300 UNITS/3 ML VIAL SC PRN ×2 (17:06)
[2022-11-11] MEDS ORDERED: Dextrose 5% in Water 1,000 ML IV PRN (17:06)
[2022-11-11] MEDS ORDERED: Dextrose 50% Abboject 50 ML SYRINGE SLOW IVP PRN (17:06)
[2022-11-11] MEDS ORDERED: Benzonatate 100 MG CAP PO PRN (19:25)
[2022-11-11] MEDS ORDERED: Piperacillin/Tazobactam 3.375 GM in Sodium Chloride 0.9% 100 ML IVPB SCH (19:45)
[2022-11-11] MEDS ORDERED: Cefepime 1 GM in Sodium Chloride 0.9% 100 ML IVPB SCH (21:00)
[2022-11-11] MEDS ORDERED: cycloSPORINE, Modified 25 MG CAP PO SCH (23:45)
[2022-11-12] MEDS ORDERED: Hydrocortisone 10 mg Tablet PO SCH (00:15)
[2022-11-12] MEDS ORDERED: Piperacillin/Tazobactam 3.375 GM in Sodium Chloride 0.9% 100 ML IVPB SCH (01:00)
[2022-11-12] MEDS: Vancomycin HCl 750 MG in Sodium Chloride 0.9% 250 ML 250 ML IVPB SCH ×2 (04:34→17:05)
[2022-11-12] MEDS: Piperacillin/Tazobactam 3.375 GM in Sodium Chloride 0.9% 100 ML IVPB SCH ×2 (05:33→15:00)
[2022-11-12 06:22] VITALS: BMI 22.9
[2022-11-12] MEDS ORDERED: SIROLIMUS 0.5 MG PO SCH ×2 (09:00→10:30)
[2022-11-12] MEDS ORDERED: cycloSPORINE, Modified 25 MG CAP PO SCH (09:00)
[2022-11-12] MEDS ORDERED: FLU VACC QS2022-23(65YR UP)/PF 240 MCG/0.7 ML SYRINGE IM ONE (10:15)
[2022-11-12] MEDS ORDERED: SIROLIMUS 1 MG PO SCH (10:30)
[2022-11-12] MEDS ORDERED: Polyethylene Glycol 3350 17 GM Packet PO PRN (10:34)
[2022-11-12] MEDS ORDERED: Loratadine 10 MG TAB PO PRN (10:48)
[2022-11-12] MEDS: Hydrocortisone 10 mg Tablet PO SCH ×2 (11:21→21:07)
[2022-11-12] MEDS: metFORMIN 500 MG TAB PO SCH (17:05)
[2022-11-12] MEDS: Carbidopa/Levodopa 25-100 mg Tablet PO SCH ×2 (17:05→21:04)
[2022-11-12] MEDS: Tamsulosin HCl 0.4 MG CAP PO SCH (17:06)
[2022-11-12] MEDS: Magnesium Oxide 400 MG TAB PO SCH (21:03)
[2022-11-12] MEDS: Atorvastatin Calcium 40 MG TAB PO SCH (21:04)
[2022-11-12] MEDS: Cefepime 2 GM in Sodium Chloride 0.9% 100 ML IVPB SCH (21:04)
[2022-11-13 02:40] LABS: Anion Gap 14 mmol/L (10-20); BUN (Urea Nitrogen) 11 mg/dL (8.4-25.7); Calc. Creatinine Clearance 111 mL/min (70-130); Calcium 8.8 mg/dL (7.8-10.44); Carbon Dioxide 22 mmol/L (23-31); Chloride 107 mmol/L (98-107); Estimated GFR 101; Glucose 147 mg/dL (80-115); Potassium 3.2 mmol/L (3.5-5.1); Sodium 140 mmol/L (136-145)
[2022-11-13 02:43] LABS: Vancomycin, Trough 15.7 ug/mL
[2022-11-13 03:03] LABS: #Eosinphils 0.2 10x3/uL (0.0-0.5); #Monocytes 0.6 10x3/uL (0.0-1.1); #Neutrophils 7.1 10x3/uL (1.5-8.4); %Basophils 0.4 % (0.0-2.0); %Eosinophils 1.8 % (0.0-6.0); %Lymphocytes 11.8 % (18.0-47.0); %Monocytes 7.1 % (0.0-10.0); %Neutrophils 78.7 % (40.0-75.0); Mean Corpuscular HGB CONC 31.4 g/dL (32.0-36.0); Mean Corpuscular Hemoglobin 25.6 pg (27.0-33.0); Mean Corpuscular Volume 81.5 fl (81.2-95.1); Mean Platelet Volume 12.3 fl (7.4-10.4); Platelet Count 195 10x3/uL (150-450); RBC Distribution Width 19.9 % (11.5-14.5); Red Blood Cell (RBC) Count 3.13 10x6/uL (4.32-5.72)
[2022-11-13] MEDS: Vancomycin HCl 750 MG in Sodium Chloride 0.9% 250 ML 250 ML IVPB SCH ×2 (04:03→17:06)
[2022-11-13] MEDS: SIROLIMUS 1 MG PO SCH (09:00)
[2022-11-13] MEDS: SIROLIMUS 0.5 MG PO SCH (09:00)
[2022-11-13] MEDS: metFORMIN 500 MG TAB PO SCH ×2 (10:06→17:06)
[2022-11-13] MEDS: Aspirin 81 mg Enteric Coated Tablet PO SCH (10:06)
[2022-11-13] MEDS: Alogliptin 25 MG TAB PO SCH (10:07)
[2022-11-13] MEDS: Cefepime 2 GM in Sodium Chloride 0.9% 100 ML IVPB SCH ×2 (10:08→20:43)
[2022-11-13] MEDS: Multivit, Therapeutic 1 TAB PO SCH (10:08)
[2022-11-13] MEDS: Magnesium Oxide 400 MG TAB PO SCH ×2 (10:08→20:43)
[2022-11-13] MEDS: Carbidopa/Levodopa 25-100 mg Tablet PO SCH ×3 (10:09→20:42)
[2022-11-13] MEDS: Hydrocortisone 10 mg Tablet PO SCH ×2 (10:09→20:43)
[2022-11-13] MEDS: Calcium Carbonate 600 MG TAB PO SCH (10:09)
[2022-11-13] MEDS: Tamsulosin HCl 0.4 MG CAP PO SCH (17:06)
[2022-11-13] MEDS: Atorvastatin Calcium 40 MG TAB PO SCH (20:43)
[2022-11-14] MEDS: Vancomycin HCl 750 MG in Sodium Chloride 0.9% 250 ML 250 ML IVPB SCH ×2 (03:40→15:54)
[2022-11-14] MEDS: Hydrocortisone 10 mg Tablet PO SCH ×2 (10:23→22:30)
[2022-11-14] MEDS: SIROLIMUS 0.5 MG PO SCH (10:23)
[2022-11-14] MEDS: Alogliptin 25 MG TAB PO SCH (10:23)
[2022-11-14] MEDS: Carbidopa/Levodopa 25-100 mg Tablet PO SCH ×3 (10:23→22:26)
[2022-11-14] MEDS: Magnesium Oxide 400 MG TAB PO SCH ×2 (10:23→22:26)
[2022-11-14] MEDS: Calcium Carbonate 600 MG TAB PO SCH (10:23)
[2022-11-14] MEDS: Cefepime 2 GM in Sodium Chloride 0.9% 100 ML IVPB SCH ×2 (10:24→22:26)
[2022-11-14] MEDS: metFORMIN 500 MG TAB PO SCH ×2 (10:24→17:55)
[2022-11-14] MEDS: Multivit, Therapeutic 1 TAB PO SCH (10:24)
[2022-11-14] MEDS: Aspirin 81 mg Enteric Coated Tablet PO SCH (10:24)
[2022-11-14] MEDS: SIROLIMUS 1 MG PO SCH (10:25)
[2022-11-14] MEDS: Tamsulosin HCl 0.4 MG CAP PO SCH (17:55)
[2022-11-14] MEDS: Atorvastatin Calcium 40 MG TAB PO SCH (22:25)
[2022-11-15] MEDS: Vancomycin HCl 750 MG in Sodium Chloride 0.9% 250 ML 250 ML IVPB SCH (04:28)
[2022-11-15 08:49] LABS: #Basophils 0.1 10x3/uL (0.0-0.2); #Eosinphils 0.1 10x3/uL (0.0-0.5); #Monocytes 0.6 10x3/uL (0.0-1.1); #Neutrophils 3.8 10x3/uL (1.5-8.4); %Basophils 0.8 % (0.0-2.0); %Lymphocytes 22.1 % (18.0-47.0); %Monocytes 10.1 % (0.0-10.0); %Neutrophils 64.5 % (40.0-75.0); Mean Corpuscular Volume 80.6 fl (81.2-95.1); Mean Platelet Volume 11.5 fl (7.4-10.4); Platelet Count 174 10x3/uL (150-450); RBC Distribution Width 19.4 % (11.5-14.5); White Blood Cell (WBC) Count 5.9 10x3/uL (3.5-10.5)
[2022-11-15 09:03] LABS: Anion Gap 16 mmol/L (10-20); BUN (Urea Nitrogen) 14 mg/dL (8.4-25.7); Calc. Creatinine Clearance 118 mL/min (70-130); Calcium 9.4 mg/dL (7.8-10.44); Carbon Dioxide 23 mmol/L (23-31); Chloride 105 mmol/L (98-107); Estimated GFR 103; Glucose 138 mg/dL (80-115); Potassium 3.5 mmol/L (3.5-5.1); Sodium 140 mmol/L (136-145)
[2022-11-15] MEDS: Magnesium Oxide 400 MG TAB PO SCH ×2 (09:34→22:19)
[2022-11-15] MEDS: Alogliptin 25 MG TAB PO SCH (09:34)
[2022-11-15] MEDS: Aspirin 81 mg Enteric Coated Tablet PO SCH (09:34)
[2022-11-15] MEDS: Multivit, Therapeutic 1 TAB PO SCH (09:34)
[2022-11-15] MEDS: metFORMIN 500 MG TAB PO SCH ×2 (09:35→17:11)
[2022-11-15] MEDS: Carbidopa/Levodopa 25-100 mg Tablet PO SCH ×3 (09:35→22:17)
[2022-11-15] MEDS: Cefepime 2 GM in Sodium Chloride 0.9% 100 ML IVPB SCH ×2 (09:35→22:18)
[2022-11-15] MEDS: Calcium Carbonate 600 MG TAB PO SCH (09:36)
[2022-11-15] MEDS: Hydrocortisone 10 mg Tablet PO SCH ×2 (09:44→22:18)
[2022-11-15] MEDS: SIROLIMUS 0.5 MG PO SCH (09:44)
[2022-11-15] MEDS: SIROLIMUS 1 MG PO SCH (09:45)
[2022-11-15] MEDS: Tamsulosin HCl 0.4 MG CAP PO SCH (17:11)
[2022-11-15] MEDS: Atorvastatin Calcium 40 MG TAB PO SCH (22:17)
[2022-11-16 05:53] LABS: Anion Gap 18 mmol/L (10-20); BUN (Urea Nitrogen) 13 mg/dL (8.4-25.7); Calc. Creatinine Clearance 118 mL/min (70-130); Calcium 9.7 mg/dL (7.8-10.44); Carbon Dioxide 22 mmol/L (23-31); Chloride 105 mmol/L (98-107); Estimated GFR 103; Glucose 136 mg/dL (80-115); Potassium 3.5 mmol/L (3.5-5.1); Sodium 141 mmol/L (136-145)
[2022-11-16 06:10] LABS: #Eosinphils 0.2 10x3/uL (0.0-0.5); #Monocytes 0.7 10x3/uL (0.0-1.1); #Neutrophils 4.3 10x3/uL (1.5-8.4); %Basophils 0.6 % (0.0-2.0); %Eosinophils 2.4 % (0.0-6.0); %Lymphocytes 17.6 % (18.0-47.0); %Monocytes 10.8 % (0.0-10.0); %Neutrophils 68.3 % (40.0-75.0); Hemoglobin 8.5 g/dL (13.5-17.5); Mean Corpuscular Hemoglobin 25.1 pg (27.0-33.0); Mean Corpuscular Volume 80.8 fl (81.2-95.1); Mean Platelet Volume 11.4 fl (7.4-10.4); Platelet Count 209 10x3/uL (150-450); RBC Distribution Width 19.1 % (11.5-14.5); Red Blood Cell (RBC) Count 3.39 10x6/uL (4.32-5.72); White Blood Cell (WBC) Count 6.3 10x3/uL (3.5-10.5)
[2022-11-16] MEDS: SIROLIMUS 0.5 MG PO SCH (10:09)
[2022-11-16] MEDS: SIROLIMUS 1 MG PO SCH (10:10)
[2022-11-16] MEDS: Magnesium Oxide 400 MG TAB PO SCH ×2 (10:11→21:27)
[2022-11-16] MEDS: Carbidopa/Levodopa 25-100 mg Tablet PO SCH ×3 (10:12→21:26)
[2022-11-16] MEDS: Aspirin 81 mg Enteric Coated Tablet PO SCH (10:13)
[2022-11-16] MEDS: metFORMIN 500 MG TAB PO SCH ×2 (10:13→17:08)
[2022-11-16] MEDS: Calcium Carbonate 600 MG TAB PO SCH (10:14)
[2022-11-16] MEDS: Hydrocortisone 10 mg Tablet PO SCH ×2 (10:14→21:26)
[2022-11-16] MEDS: Cefepime 2 GM in Sodium Chloride 0.9% 100 ML IVPB SCH ×2 (10:15→21:26)
[2022-11-16] MEDS: Alogliptin 25 MG TAB PO SCH (10:15)
[2022-11-16] MEDS: Multivit, Therapeutic 1 TAB PO SCH (10:19)
[2022-11-16] MEDS: Tamsulosin HCl 0.4 MG CAP PO SCH (17:09)
[2022-11-16] MEDS: Atorvastatin Calcium 40 MG TAB PO SCH (21:26)
[2022-11-17] MEDS: Carbidopa/Levodopa 25-100 mg Tablet PO SCH ×3 (10:04→21:10)
[2022-11-17] MEDS: Hydrocortisone 10 mg Tablet PO SCH ×2 (10:06→21:11)
[2022-11-17] MEDS: Aspirin 81 mg Enteric Coated Tablet PO SCH (10:06)
[2022-11-17] MEDS: Calcium Carbonate 600 MG TAB PO SCH (10:07)
[2022-11-17] MEDS: metFORMIN 500 MG TAB PO SCH ×2 (10:07→17:46)
[2022-11-17] MEDS: Alogliptin 25 MG TAB PO SCH (10:08)
[2022-11-17] MEDS: Cefepime 2 GM in Sodium Chloride 0.9% 100 ML IVPB SCH ×2 (10:08→21:14)
[2022-11-17] MEDS: Magnesium Oxide 400 MG TAB PO SCH ×2 (10:09→21:10)
[2022-11-17] MEDS: Multivit, Therapeutic 1 TAB PO SCH (10:10)
[2022-11-17] MEDS: SIROLIMUS 0.5 MG PO SCH (10:10)
[2022-11-17] MEDS: SIROLIMUS 1 MG PO SCH (10:15)
[2022-11-17] MEDS: Tamsulosin HCl 0.4 MG CAP PO SCH (17:46)
[2022-11-17] MEDS: Atorvastatin Calcium 40 MG TAB PO SCH (21:08)
[2022-11-18 08:07] LABS: #Basophils 0.1 10x3/uL (0.0-0.2); #Eosinphils 0.1 10x3/uL (0.0-0.5); #Monocytes 0.7 10x3/uL (0.0-1.1); #Neutrophils 3.4 10x3/uL (1.5-8.4); %Eosinophils 1.9 % (0.0-6.0); %Lymphocytes 26.4 % (18.0-47.0); %Monocytes 11.8 % (0.0-10.0); %Neutrophils 57.7 % (40.0-75.0); Hemoglobin 9.2 g/dL (13.5-17.5); Mean Corpuscular HGB CONC 30.3 g/dL (32.0-36.0); Mean Corpuscular Hemoglobin 24.5 pg (27.0-33.0); Mean Corpuscular Volume 80.9 fl (81.2-95.1); Mean Platelet Volume 11.8 fl (7.4-10.4); Platelet Count 210 10x3/uL (150-450); RBC Distribution Width 19.5 % (11.5-14.5); Red Blood Cell (RBC) Count 3.76 10x6/uL (4.32-5.72); White Blood Cell (WBC) Count 5.8 10x3/uL (3.5-10.5)
[2022-11-18 08:21] LABS: Anion Gap 15 mmol/L (10-20); BUN (Urea Nitrogen) 16 mg/dL (8.4-25.7); Calc. Creatinine Clearance 113 mL/min (70-130); Calcium 9.6 mg/dL (7.8-10.44); Carbon Dioxide 23 mmol/L (23-31); Chloride 104 mmol/L (98-107); Estimated GFR 101; Glucose 124 mg/dL (80-115); Potassium 3.7 mmol/L (3.5-5.1); Sodium 138 mmol/L (136-145)
[2022-11-18] MEDS: Carbidopa/Levodopa 25-100 mg Tablet PO SCH ×3 (10:43→20:44)
[2022-11-18] MEDS: metFORMIN 500 MG TAB PO SCH ×2 (10:43→16:12)
[2022-11-18] MEDS: Calcium Carbonate 600 MG TAB PO SCH (10:43)
[2022-11-18] MEDS: Aspirin 81 mg Enteric Coated Tablet PO SCH (10:44)
[2022-11-18] MEDS: Multivit, Therapeutic 1 TAB PO SCH (10:44)
[2022-11-18] MEDS: Alogliptin 25 MG TAB PO SCH (10:44)
[2022-11-18] MEDS: Magnesium Oxide 400 MG TAB PO SCH ×2 (10:44→20:46)
[2022-11-18] MEDS: Cefepime 2 GM in Sodium Chloride 0.9% 100 ML IVPB SCH ×2 (10:45→20:44)
[2022-11-18] MEDS: Hydrocortisone 10 mg Tablet PO SCH ×2 (10:45→20:45)
[2022-11-18] MEDS: SIROLIMUS 0.5 MG PO SCH (10:46)
[2022-11-18] MEDS: SIROLIMUS 1 MG PO SCH (10:46)
[2022-11-18] MEDS: Loperamide HCl 2 MG CAP PO PRN ×3 (14:30→21:07)
[2022-11-18] MEDS ORDERED: Saccharomyces boulardii 250 MG CAP PO SCH (16:00)
[2022-11-18] MEDS: Tamsulosin HCl 0.4 MG CAP PO SCH (16:12)
[2022-11-18] MEDS: Atorvastatin Calcium 40 MG TAB PO SCH (20:44)
[2022-11-19 04:17] LABS: Anion Gap 14 mmol/L (10-20); BUN (Urea Nitrogen) 16 mg/dL (8.4-25.7); Calc. Creatinine Clearance 122 mL/min (70-130); Calcium 9.2 mg/dL (7.8-10.44); Carbon Dioxide 22 mmol/L (23-31); Chloride 106 mmol/L (98-107); Estimated GFR 104; Glucose 121 mg/dL (80-115); Magnesium 1.9 mg/dL (1.6-2.6); Potassium 3.6 mmol/L (3.5-5.1); Sodium 138 mmol/L (136-145)
[2022-11-19] MEDS ORDERED: Saccharomyces boulardii 250 MG CAP PO SCH (09:00)
[2022-11-19] MEDS: metFORMIN 500 MG TAB PO SCH ×2 (09:44→16:06)
[2022-11-19] MEDS: Loperamide HCl 2 MG CAP PO PRN ×3 (09:44→16:06)
[2022-11-19] MEDS: Magnesium Oxide 400 MG TAB PO SCH (09:44)
[2022-11-19] MEDS: Alogliptin 25 MG TAB PO SCH (09:44)
[2022-11-19] MEDS: Multivit, Therapeutic 1 TAB PO SCH (09:45)
[2022-11-19] MEDS: Hydrocortisone 10 mg Tablet PO SCH (09:45)
[2022-11-19] MEDS: Aspirin 81 mg Enteric Coated Tablet PO SCH (09:45)
[2022-11-19] MEDS: Calcium Carbonate 600 MG TAB PO SCH (09:46)
[2022-11-19] MEDS: Carbidopa/Levodopa 25-100 mg Tablet PO SCH ×2 (09:46→16:06)
[2022-11-19] MEDS: SIROLIMUS 1 MG PO SCH (09:47)
[2022-11-19] MEDS: SIROLIMUS 0.5 MG PO SCH (09:47)
[2022-11-19] MEDS: Tamsulosin HCl 0.4 MG CAP PO SCH (16:06)
[2022-11-19 17:32] VITALS: BP 114/84; TEMP 98.3
== END 2022-11-19 18:16 | disposition home or self-care (01) | DRG 871 ==
LOC: CSHERS 12:46 → CSHTELE 23:48
PROVIDERS: ADMIT Student in an Organized Health Care Education/Training Program; ATTEND Internal Medicine
DX: A41.9 Sepsis, unspecified organism (principal); J18.9 Pneumonia, unspecified organism; D84.9 Immunodeficiency, unspecified; Z94.0 Kidney transplant status; Z94.1 Heart transplant status; I42.9 Cardiomyopathy, unspecified; N39.0 Urinary tract infection, site not specified; Z16.20 Resistance to unspecified antibiotic; F32.A Depression, unspecified; R13.10 Dysphagia, unspecified; E78.5 Hyperlipidemia, unspecified; G20 Parkinson's disease; E11.9 Type 2 diabetes mellitus without complications; F01.50 Vascular dementia, unspecified severity, without behavioral disturbance, psychotic disturbance, mood disturbance, and anxiety; I11.0 Hypertensive heart disease with heart failure; I50.9 Heart failure, unspecified; E80.4 Gilbert syndrome; F02.80 Dementia in other diseases classified elsewhere, unspecified severity, without behavioral disturbance, psychotic disturbance, mood disturbance, and anxiety; K21.9 Gastro-esophageal reflux disease without esophagitis; I48.91 Unspecified atrial fibrillation; Z20.822 Contact with and (suspected) exposure to COVID-19; N31.9 Neuromuscular dysfunction of bladder, unspecified; N40.1 Benign prostatic hyperplasia with lower urinary tract symptoms; R33.8 Other retention of urine; D63.8 Anemia in other chronic diseases classified elsewhere; R19.7 Diarrhea, unspecified; Z79.82 Long term (current) use of aspirin; Z79.899 Other long term (current) drug therapy; Z79.84 Long term (current) use of oral hypoglycemic drugs; Z86.73 Personal history of transient ischemic attack (TIA), and cerebral infarction without residual deficits
CPT/HCPCS: 36415; 36416; 70450; 71045; 74230; 80048; 80053; 80202; 81003; 81015; 82565; 83605; 83735; 84145; 84484; 85025; 86140; 87040; 87081; 87086; 87324; 87449; 87811; 93005; 94760; 96365; 96375; J0692; J0696; J1650; J2543; J3370; J3490; J7050; J7515

== ENCOUNTER 2023-05-11 10:04 | Emergency (ER) | payer MEDICARE, BC ==
[2023-05-11 11:03] LABS: #Monocytes 1.5 10x3/uL (0.0-1.1); #Neutrophils 14.7 10x3/uL (1.5-8.4); %Basophils 0.2 % (0.0-2.0); %Eosinophils 0.2 % (0.0-6.0); %Lymphocytes 5.6 % (18.0-47.0); %Monocytes 8.8 % (0.0-10.0); %Neutrophils 84.3 % (40.0-75.0); Hematocrit 33.7 % (38.8-50.0); Hemoglobin 10.5 g/dL (13.5-17.5); Mean Corpuscular HGB CONC 31.2 g/dL (32.0-36.0); Mean Corpuscular Hemoglobin 27.6 pg (27.0-33.0); Mean Corpuscular Volume 88.5 fl (81.2-95.1); Mean Platelet Volume 11.1 fl (7.4-10.4); Platelet Count 236 10x3/uL (150-450); RBC Distribution Width 15.9 % (11.5-14.5); Red Blood Cell (RBC) Count 3.81 10x6/uL (4.32-5.72); White Blood Cell (WBC) Count 17.4 10x3/uL (3.5-10.5)
[2023-05-11 11:19] LABS: ALT (SGPT) 18 U/L (8-55); AST (SGOT) 29 U/L (5-34); Albumin 3.7 g/dL (3.4-4.8); Alkaline Phosphatase 158 U/L (40-110); Anion Gap 14 mmol/L (10-20); BUN (Urea Nitrogen) 17 mg/dL (8.4-25.7); Bilirubin, Total 1.2 mg/dL (0.2-1.2); Calc. Creatinine Clearance 0 mL/min (70-130); Calcium 8.4 mg/dL (7.8-10.44); Carbon Dioxide 25 mmol/L (23-31); Chloride 103 mmol/L (98-107); Estimated GFR 97; Glucose 177 mg/dL (80-115); Potassium 3.6 mmol/L (3.5-5.1); Protein, Total 6.7 g/dL (5.8-8.1); Sodium 138 mmol/L (136-145)
[2023-05-11 11:50] LABS: Actual Bicarbonate (HCO3a) 24.9 mEq/L (22-28); Base Excess (BEa) 0.7 mEq/L (-2.0 to +3.0); Hematocrit-ABG 31 % (42.0-52.0); Hemoglobin (Hb) 10.6 g/dL (14.0-18.0); O2 Tension (PaO2), arterial 79.9 mmHg (> 80.0); Potassium - ABG Lab 3.35 mmol/L (3.70-5.30); Puncture Site LRA; pH, Arterial 7.434 (7.35-7.45)
[2023-05-11 11:54] LABS: Bilirubin Neg (Negative); Blood, Urine 25 (Negative); Clarity Slightly Cloudy (Clear); Glucose, Urine (Dipstick) Normal (Negative); Ketone, Urine Negative (Negative); Leukocyte 500 (Negative); Nitrite Negative (Negative); Protein, Urine (Dipstick) 100 mg/dl (Neg-Trace); Urobilinogen Normal mg/dL (Less than 2)
[2023-05-11 12:09] LABS: Bacteria/HPF 2+ HPF (None Seen); CAUTI Indications for Culture Alt mental st,lethar; RBC/HPF 0-3 HPF (0-3); Squamous Epithelial None Seen HPF (0-3)
[2023-05-11 12:10] LABS: Urine Culture Reflex Yes Yes
[2023-05-11] MEDS ORDERED: Vancomycin 1 GM VIAL ONE (12:23)
[2023-05-11 12:30] LABS: SARS-CoV-2 NAA Rapid Test Not Detected (NotDetected)
[2023-05-11] MEDS ORDERED: LevoFLOXacin 750 mg/D5W 150 ml Premix Bag ONE ×3 (12:33→12:34)
== END 2023-05-11 15:27 | disposition short-term general hospital (02) ==
LOC: CSHERS 10:04
DX: A41.9 Sepsis, unspecified organism (principal); J18.9 Pneumonia, unspecified organism; N39.0 Urinary tract infection, site not specified; V00.811A Fall from moving wheelchair (powered), initial encounter
CPT/HCPCS: 0240U; 36600; 70450; 71045; 80053; 81001; 82805; 83605; 83880; 84145; 84484; 85025; 87040; 87077; 87086; 87186; 93005; 36415; 96361; 96365; 96366; 96367; J1956; J3370

== ENCOUNTER 2025-05-23 23:38 | Inpatient (IN) | payer MEDICARE, BC ==
[2025-05-24] MEDS ORDERED: Cefepime 2 GM VIAL ONE (00:24)
[2025-05-24 00:53] LABS: #Basophils 0.03 10x3/uL (0.0-0.2); #Eosinophils 0.07 10x3/uL (0.0-0.5); #Monocytes 0.87 10x3/uL (0.0-1.1); #Neutrophils 12.49 10x3/uL (1.5-8.4); %Basophils 0.2 % (0.0-2.0); %Eosinophils 0.5 % (0.0-6.0); %Lymphocytes 5.6 % (18.0-47.0); %Monocytes 6.1 % (0.0-10.0); %Neutrophils 87.3 % (40.0-75.0); Hematocrit 38.8 % (38.8-50.0); Hemoglobin 12.4 g/dL (13.5-17.5); Mean Corpuscular Hemoglobin 27.3 pg (27.0-33.0); Mean Corpuscular Volume 85.5 fL (81.2-95.1); Platelet Count 240 10x3/uL (150-450); Red Blood Cell (RBC) Count 4.54 10x6/uL (4.32-5.72); White Blood Cell (WBC) Count 14.30 10x3/uL (3.5-10.5)
[2025-05-24 01:14] LABS: ALT (SGPT) 11 U/L (Less than 45); AST (SGOT) 19 U/L (11-34); Albumin 4.2 g/dL (3.1-4.5); Alkaline Phosphatase 87 U/L (40-110); Anion Gap 19 mmol/L (10-20); BUN (Urea Nitrogen) 18 mg/dL (8.4-25.7); Bilirubin, Total 1.1 mg/dL (0.3-1.2); Calc. Creatinine Clearance 0 mL/min (70-130); Calcium 10.1 mg/dL (7.8-10.44); Carbon Dioxide 28 mmol/L (23-31); Chloride 96 mmol/L (98-107); Globulin 4.2 g/dL (2.4-3.5); Glucose 229 mg/dL (80-115); Potassium 3.7 mmol/L (3.5-5.1); Sodium 139 mmol/L (136-145)
[2025-05-24 02:58] LABS: Glucose, Urine (Dipstick) Normal (Negative); Leukocyte Negative (Negative); Protein, Urine (Dipstick) 100 mg/dl (Neg-Trace); Specific Gravity, Urine 1.010 (1.005-1.030)
[2025-05-24 03:05] LABS: Bacteria/HPF Rare-Few HPF (None Seen); CAUTI Indications for Culture Dysuria,urgency,freq; RBC/HPF 0-3 HPF (0-3); WBC/HPF 0-3 HPF (0-3)
[2025-05-24 03:06] LABS: Urine Culture Reflex No No
[2025-05-24] MEDS ORDERED: Dextrose 50% Abboject 50 ML SYRINGE SLOW IVP PRN (04:15)
[2025-05-24] MEDS ORDERED: Acetaminophen 325 MG TAB PO PRN (04:15)
[2025-05-24] MEDS ORDERED: Glucagon 1 MG/ML KIT IM PRN (04:15)
[2025-05-24 05:18] VITALS: BMI 18.7
[2025-05-24] MEDS ORDERED: Pharmacy to Dose - VANCOMYCIN IVPB PRN (05:47)
[2025-05-24] MEDS: Enoxaparin 40 MG (0.4 mL) SYRINGE SC SCH (09:15)
[2025-05-24] MEDS: Aspirin 81 mg Enteric Coated Tablet PO SCH (09:16)
[2025-05-24] MEDS: Pantoprazole 40 MG DR.TAB PO SCH (09:16)
[2025-05-24] MEDS: Vancomycin 1 GM in Sodium Chloride 0.9% 250 ML 250 ML IVPB SCH (11:39)
[2025-05-24] MEDS: Pyridostigmine Bromide IR 60 MG TAB PO SCH (16:51)
[2025-05-24] MEDS: LevoFLOXacin 750 mg/D5W 750 MG in Premix 1 BAG IVPB SCH (19:30)
[2025-05-24 21:24] LABS: Legionella Urinary Ag Negative (Negative); Strep pneumo Urine Ag NEGATIVE (NEGATIVE)
[2025-05-25] MEDS: hydrALAZINE 20 MG/ML VIAL SLOW IVP PRN (00:45)
[2025-05-25 05:25] LABS: #Basophils 0.04 10x3/uL (0.0-0.2); #Eosinophils 0.05 10x3/uL (0.0-0.5); #Monocytes 0.63 10x3/uL (0.0-1.1); #Neutrophils 6.14 10x3/uL (1.5-8.4); %Basophils 0.5 % (0.0-2.0); %Eosinophils 0.6 % (0.0-6.0); %Lymphocytes 13.3 % (18.0-47.0); %Monocytes 7.9 % (0.0-10.0); %Neutrophils 77.3 % (40.0-75.0); Hematocrit 34.3 % (38.8-50.0); Hemoglobin 10.6 g/dL (13.5-17.5); Mean Corpuscular Hemoglobin 26.7 pg (27.0-33.0); Mean Corpuscular Volume 86.4 fL (81.2-95.1); Platelet Count 186 10x3/uL (150-450); Red Blood Cell (RBC) Count 3.97 10x6/uL (4.32-5.72); White Blood Cell (WBC) Count 7.95 10x3/uL (3.5-10.5)
[2025-05-25 05:40] LABS: Vancomycin, Random 23.0 ug/mL (See Comment)
[2025-05-25 05:42] LABS: Anion Gap 12 mmol/L (10-20); BUN (Urea Nitrogen) 11 mg/dL (8.4-25.7); Calc. Creatinine Clearance 94 mL/min (70-130); Calcium 8.8 mg/dL (7.8-10.44); Carbon Dioxide 25 mmol/L (23-31); Chloride 107 mmol/L (98-107); Glucose 114 mg/dL (80-115); Potassium 3.7 mmol/L (3.5-5.1); Sodium 140 mmol/L (136-145)
[2025-05-25 10:43] LABS: Reference Lab Name LABCORP
[2025-05-25] MEDS: Lactulose 20 GM (30 mL) UDCUP PO SCH (12:33)
[2025-05-26 04:05] LABS: #Basophils Less than 0.03 10x3/uL (0.0-0.2); #Eosinophils 0.06 10x3/uL (0.0-0.5); #Monocytes 0.68 10x3/uL (0.0-1.1); #Neutrophils 5.52 10x3/uL (1.5-8.4); %Basophils 0.3 % (0.0-2.0); %Eosinophils 0.8 % (0.0-6.0); %Lymphocytes 10.9 % (18.0-47.0); %Monocytes 9.6 % (0.0-10.0); %Neutrophils 78.3 % (40.0-75.0); Hematocrit 32.8 % (38.8-50.0); Hemoglobin 10.6 g/dL (13.5-17.5); Mean Corpuscular Hemoglobin 27.3 pg (27.0-33.0); Mean Corpuscular Volume 84.5 fL (81.2-95.1); Platelet Count 198 10x3/uL (150-450); Red Blood Cell (RBC) Count 3.88 10x6/uL (4.32-5.72); White Blood Cell (WBC) Count 7.06 10x3/uL (3.5-10.5)
[2025-05-26 04:19] LABS: Anion Gap 14 mmol/L (10-20); BUN (Urea Nitrogen) 7 mg/dL (8.4-25.7); Calc. Creatinine Clearance 91 mL/min (70-130); Calcium 8.5 mg/dL (7.8-10.44); Carbon Dioxide 23 mmol/L (23-31); Chloride 107 mmol/L (98-107); Glucose 177 mg/dL (80-115); Potassium 3.2 mmol/L (3.5-5.1); Sodium 141 mmol/L (136-145)
[2025-05-26] MEDS: Lactulose 20 GM (30 mL) UDCUP PO SCH (08:57)
[2025-05-27 03:58] LABS: #Basophils Less than 0.03 10x3/uL (0.0-0.2); #Eosinophils 0.03 10x3/uL (0.0-0.5); #Monocytes 0.75 10x3/uL (0.0-1.1); #Neutrophils 5.37 10x3/uL (1.5-8.4); %Basophils 0.3 % (0.0-2.0); %Eosinophils 0.4 % (0.0-6.0); %Lymphocytes 10.9 % (18.0-47.0); %Monocytes 10.8 % (0.0-10.0); %Neutrophils 77.2 % (40.0-75.0); Hematocrit 33.7 % (38.8-50.0); Hemoglobin 11.0 g/dL (13.5-17.5); Mean Corpuscular Hemoglobin 27.8 pg (27.0-33.0); Mean Corpuscular Volume 85.1 fL (81.2-95.1); Platelet Count 199 10x3/uL (150-450); Red Blood Cell (RBC) Count 3.96 10x6/uL (4.32-5.72); White Blood Cell (WBC) Count 6.96 10x3/uL (3.5-10.5)
[2025-05-27 04:19] LABS: Anion Gap 17 mmol/L (10-20); BUN (Urea Nitrogen) 8 mg/dL (8.4-25.7); Calc. Creatinine Clearance 95 mL/min (70-130); Calcium 8.9 mg/dL (7.8-10.44); Carbon Dioxide 22 mmol/L (23-31); Chloride 106 mmol/L (98-107); Glucose 116 mg/dL (80-115); Magnesium 1.8 mg/dL (1.6-2.6); Potassium 3.5 mmol/L (3.5-5.1); Sodium 141 mmol/L (136-145); Vancomycin, Random 40.9 ug/mL (See Comment)
[2025-05-27 07:57] LABS: Vancomycin, Random 27.0 ug/mL (See Comment)
[2025-05-27 11:27] VITALS: BP 151/100; TEMP 98.2
[2025-05-27] MEDS ORDERED: Vancomycin HCl 750 MG in Sodium Chloride 0.9% 250 ML 250 ML IVPB SCH (18:00)
[2025-06-01 17:14] LABS: Histoplasma Antigen - Urine Negative (<0.2 ng/mL)
== END 2025-05-27 16:10 | disposition short-term general hospital (02) | DRG 871 ==
LOC: CSHERS 23:38 → CSHTELE 05-24 03:49 → OBSVTOIN 05-24 12:42
PROVIDERS: ADMIT Family Medicine; ATTEND Internal Medicine
DX: A41.9 Sepsis, unspecified organism (principal); J18.9 Pneumonia, unspecified organism; Z94.1 Heart transplant status; Z94.0 Kidney transplant status; D84.9 Immunodeficiency, unspecified; I42.8 Other cardiomyopathies; E44.0 Moderate protein-calorie malnutrition; K21.9 Gastro-esophageal reflux disease without esophagitis; E11.9 Type 2 diabetes mellitus without complications; I48.91 Unspecified atrial fibrillation; E78.5 Hyperlipidemia, unspecified; Z98.890 Other specified postprocedural states; E86.0 Dehydration; Z86.73 Personal history of transient ischemic attack (TIA), and cerebral infarction without residual deficits; E80.4 Gilbert syndrome; K62.89 Other specified diseases of anus and rectum; E87.6 Hypokalemia; Z79.899 Other long term (current) drug therapy; Z79.84 Long term (current) use of oral hypoglycemic drugs
CPT/HCPCS: 36415; 36416; 71045; 71250; 74177; 80048; 80053; 80202; 81001; 83605; 83735; 84145; 85025; 86140; 87040; 87086; 87116; 87206; 87385; 87428; 87449; 87633; 87798; 87899; 93005; 93010; 94760; 96372; 96374; 96375; 96376; G0378; J0360; J0692; J1650; J1815; J1956; J3373; J7030; J7050